=== PATIENT | female | born 1950 | race Caucasian/White ===

== ENCOUNTER 2023-04-07 10:56 | Outpatient (AMB) | payer MEDICARE, MEDICAID, SELFPAY ==
--- NOTE | 2023-04-07 11:10 | A.OFFVIS_ITS ---
Intake Vital Signs 04/07/23 11:17 Height 5 ft 6 in Weight 170 lb 6.677 oz BMI 27.5 BP 140/70 H Blood Pressure Location Rt brachial Position Sitting Pulse 97 Pulse Source Pulse Oximeter Temp 97.4 F Temp Source Skin Pulse Oximetry (%) 98 Oxygen Delivery Method Room Air Intake Visit Reasons: RA Intake Note: New patient presents today for RA consult. Previously seen b Dr Crenshaw and Dr Santoyo. Client Experience Manager Required: No Accompanied by: Daughter Allergies No Known Allergies Allergy (Verified 04/07/23 11:19) Medication List - Last Reconciled 04/07/23 by Luis F Grijalva MD albuterol sulfate 90 mcg/actuation (Ventolin HFA) 1 puff inhalation BID azelastine intranasal brimonidine 0.2% drps ophthalmic (eye) calcium carbonate-vitamin D3 600 mg-20 mcg (800 unit) 1 tab PO DAILY cetirizine 10 mg PO DAILY cholecalciferol (vitamin D3) 50 mcg PO DAILY diltiazem HCl (Cartia XT) 120 mg PO DAILY doxazosin 4 mg PO DAILY enalapril maleate 30 mg PO DAILY etanercept (Enbrel SureClick) mg subcut fluticasone propionate 220 mcg/actuation (Flovent HFA) 2 puffs inhalation BID ketorolac 0.5% 0 drps ophthalmic (eye) montelukast 10 mg PO QPM simvastatin 20 mg PO BEDTIME HPI HPI Comments History of Present Illness Details This is a 72-year-old female with seropositive RA who presents as a new patient. Her previous frame cleaner left the practice. Per patient she was diagnosed at age 28 in [place]. She has been on different medicines for rheumatoid arthritis (please see assessment) she has been on Enbrel the longest. She is currently on Enbrel weekly. She states that she is doing fairly well overall. She gets intermittent pain and swelling of different joints including her feet, elbows, wrists, fingers. Recently her right middle finger was swollen and it is improving on its own. She does complain of generalized body pain including her back, shoulders. She states that she has some bilateral shoulder pain and stiffness. She received a steroid injection a few years ago in the right shoulder, which lasted a long time. She states that she gets intermittent shortness of breath related to her history of asthma. She is unaware of any family history of an autoimmune rheumatic disease. Denies any history of smoking. Per chart review: Patient with CCP positive RA? Diagnosed since about 2001. Has been followed by Dr. Crenshaw since 2011 when she moved from [place] She was on hydroxychloroquine and was on this medication steadily until 2018.? Methotrexate was discussed initially but patient was worried about respiratory side effects as she has history of asthma Roughly in 2004 she was placed on Enbrel, this worked very well controlling her symptoms.? Then in 2015, her insurance force her to change to Humira.? This did not work well.? Since 2017, back on Enbrel, generally taking it every 10 days, but lately every 14 days. [facility] Medical History Abnormal findings on diagnostic imaging of breast Rheumatoid arthritis Asthma Hypertension Nuclear sclerotic cataract Carpal tunnel syndrome Surgical History H/O blepharoplasty Family History Mother Osteoarthritis Social History Alcohol intake: current Alcohol intake frequency: holidays/special occasions only Alcohol type: beer Patient Tobacco Use Status: Never used Tobacco e-Cigarette/Vaping Use: Never Used Current occupational status: retired Female Reproductive History Menstrual Total pregnancies: 1 Review of Systems Const Reports fatigue and Reports weakness Eyes Reports dry eyes, Reports itchy eyes and Reports eye pain ENT Reports dizziness and Reports dry mouth Card Reports irregular heart rhythm and Reports dyspnea Resp Reports cough, Reports dyspnea and Reports wheezing GI Reports nausea Musc Reports arthralgias and Reports stiffness Skin/Breast Reports rash Neuro Reports dizziness and Reports weakness Endo Reports fatigue Aller/Immun Reports itchy eyes and Reports wheezing Physical Exam Vital Signs: Last Vital Signs Temp 97.4 F 04/07/23 11:17 Pulse 97 04/07/23 11:17 BP 140/70 H 04/07/23 11:17 Pulse Ox 98 04/07/23 11:17 Oxygen Delivery Method Room Air 04/07/23 11:17 BMI result Body Mass Index 27.5 Const General: cooperative, healthy appearing and comfortable Nutritional Appearance: overweight Orientation/consciousness: patient oriented x3 Limitations: no limitations HEENT Head: Yes normocephalic and Yes atraumatic Mouth: moist mucous membranes Resp Effort & Inspection: normal respiratory effort and able to speak in complete sentences Auscultation: clear to auscultation bilaterally GI Inspection: No distended Palpation (GI): Soft to palpation and nontender Skin General skin exam: no rashes or lesions noted Neuro General: patient oriented x3 Extrem Other: Minimal swelling of right middle finger Few tender MCPs, PIP is in the DIPs bilaterally without swelling Normal range of motion of wrists, elbows without pain Bilateral reduced shoulder abduction and pain with full abduction Negative rotator cuff provocative maneuvers bilaterally Negative speed's test bilaterally Results Reviewed Results Reviewed: Labs in 02/2022? CRP normal? CMP unremarkable? ESR 24? CBC unremarkable Labs 03/2020? Hepatitis C antibody negative Assessment & Plan Assessment & Plan (1) Rheumatoid arthritis: Comment: +CCP per [place] [address] crenshaw dx 2001 HCQ until 2018 Enbrel [id number] effective DC due to insurnace requirement to Humira Humira DC 2017 ineffective Back on Enbrel 2016 effective Code(s): M06.9 - Rheumatoid arthritis, unspecified Qualifiers: Rheumatoid arthritis location: multiple sites Rheumatoid factor presence: unspecified presence Qualified Code(s): M06.9 - Rheumatoid arthritis, unspecified Plan: This is a 72-year-old female with seropositive RA who presents as a new patient. Her previous frame cleaner left the practice. Patient is doing well overall on Enbrel 50 mg weekly. Continue Enbrel 50 mg weekly Check labs before next visit in 3 months (2) Generalized osteoarthritis: Code(s): M15.9 - Polyosteoarthritis, unspecified Plan: Patient was asking which medications to use for her generalized arthritis. I suggested using Tylenol. NSAIDs such as Advil or Aleve can be used sparingly when needed Plan I spent 45 minutes reviewing patient's chart, evaluating patient, ordering diagnostic workup, counseling patient and documenting in the chart Orders: Orders Complete Blood Count Auto Diff 3 Months M06.9 - Rheumatoid arthritis, unspecified C Reactive Protein 3 Months M06.9 - Rheumatoid arthritis, unspecified T Spot TB 3 Months Z11.7 - Encounter for testing for latent tuberculosis infection Comprehensive Met. Panel 3 Months M06.9 - Rheumatoid arthritis, unspecified Erythrocyte Sedimentation Rate 3 Months M06.9 - Rheumatoid arthritis, unspecified Hepatitis A,B,C Profile 3 Months Z11.59 - Encounter for screening for other viral diseases Immunofixation Pnl, Serum 3 Months M06.9 - Rheumatoid arthritis, unspecified Protein Electrophoresis, Serum 3 Months M06.9 - Rheumatoid arthritis, unspecified Medications: Changed From etanercept (Enbrel SureClick) subcut To Enbrel SureClick (etanercept) 50 mg subcut QWEEK 4 mL 2RF NS Coding Level of Care Code New Pt Level 4 (81559) Diagnoses Rheumatoid arthritis involving multiple sites, unspecified whether rheumatoid factor present M06.9 Rheumatoid arthritis location: multiple sites Rheumatoid factor presence: unspecified presence Generalized osteoarthritis M15.9
[2023-04-07 11:17] VITALS: BP 140/70; PULSE 97; TEMP 36.3; O2SAT 98; BMI 27.5
== END 2023-04-07 11:48 | disposition home or self-care (01) ==
PROVIDERS: PCP Family Medicine; Visit Provider Student in an Organized Health Care Education/Training Program
DX: M06.9 Rheumatoid arthritis, unspecified (principal); M15.9 Polyosteoarthritis, unspecified
CPT/HCPCS: 99204

== ENCOUNTER → 2023-04-07 10:56 | Outpatient (BNVA) | payer MEDICARE, MEDICAID, SELFPAY | PROVIDERS: PCP Family Medicine; Visit Provider Student in an Organized Health Care Education/Training Program | DX: M06.9 Rheumatoid arthritis, unspecified (principal); M15.9 Polyosteoarthritis, unspecified | CPT/HCPCS: 99202 ==

== ENCOUNTER 2023-07-18 11:21 | Outpatient (REF) | payer MEDICARE, MEDICAID, SELFPAY | END 2023-07-18 11:22 | disposition home or self-care (01) | LOC: HO.LAB 11:21 | PROVIDERS: Visit Provider Student in an Organized Health Care Education/Training Program | DX: Z13.89 Encounter for screening for other disorder (principal) ==

== ENCOUNTER 2023-07-24 13:32 | Outpatient (AMB) | payer MEDICARE, MEDICAID, SELFPAY ==
--- NOTE | 2023-07-24 13:52 | A.OFFVIS_ITS ---
Intake Vital Signs 07/24/23 13:55 Height 5 ft 6 in Weight 171 lb 15.369 oz BMI 27.8 BP 142/60 H Blood Pressure Location Rt brachial Position Sitting Pulse 97 Pulse Source Pulse Oximeter Pulse Oximetry (%) 94 Oxygen Delivery Method Room Air Intake Visit Reasons: RA/CONFIRMED Intake Note: Patient last seen 04/07/23 presents today for follow up and test results. Report back pain; very stiff. Went to [facility] in [place] xray was done, was told she had really bad arthritis. Given short supply of baclofen and prednisone, which gave minimal relief. Would like medication she can take for back pain along with Enbrel Credit Risk Review Officer Required: Yes Credit Risk Review Officer Name: Rossy Posey- form signed Information Interpreted: non-clinical & clinical Accompanied by: Daughter Allergies No Known Allergies Allergy (Verified 07/24/23 13:57) Medication List - Last Reconciled 07/24/23 by Luis F Grijalva MD albuterol sulfate 90 mcg/actuation (Ventolin HFA) 1 puff inhalation BID azelastine intranasal brimonidine 0.2% drps ophthalmic (eye) calcium carbonate-vitamin D3 600 mg-20 mcg (800 unit) 1 tab PO DAILY cetirizine 10 mg PO DAILY cholecalciferol (vitamin D3) 50 mcg PO DAILY diltiazem HCl (Cartia XT) 120 mg PO DAILY doxazosin 4 mg PO DAILY enalapril maleate 30 mg PO DAILY Enbrel SureClick (etanercept) 50 mg subcut QWEEK NS fluticasone propionate 220 mcg/actuation (Flovent HFA) 2 puffs inhalation BID ketorolac 0.5% 0 drps ophthalmic (eye) montelukast 10 mg PO QPM simvastatin 20 mg PO BEDTIME HPI HPI Comments History of Present Illness Details 72-year-old female with seropositive RA returns for follow-up. She states that recently she went to the hospital at [place] due to left-sided lower back/upper hip pain. Stated that she had x-rays done and was told that she had significant arthritis. She was discharged on baclofen and prednisone with little relief. Her daughter gave her naproxen which helped. She stated that the day before going to the emergency room she was working in the garden, leaning forward. She is doing fairly well with regards to her RA. She gets intermittent swelling of her fingers but nothing severe. Today she is having some left shoulder pain when raising her arm above her head. Initial history: This is a 72-year-old female with seropositive RA who presents as a new patient. Her previous orthotics prosthetics assistant left the practice. Per patient she was diagnosed at age 28 in [place]. She has been on different medicines for rheumatoid arthritis (please see assessment) she has been on Enbrel the longest. She is currently on Enbrel weekly. She states that she is doing fairly well overall. She gets intermittent pain and swelling of different joints including her feet, elbows, wrists, fingers. Recently her right middle finger was swollen and it is improving on its own. She does complain of generalized body pain including her back, shoulders. She states that she has some bilateral shoulder pain and stiffness. She received a steroid injection a few years ago in the right shoulder, which lasted a long time. She states that she gets intermittent shortness of breath related to her history of asthma. She is unaware of any family history of an autoimmune rheumatic disease. Denies any history of smoking. Per chart review: Patient with CCP positive RA? Diagnosed since about 2001. Has been followed by Dr. Crenshaw since 2011 when she moved from [place] She was on hydroxychloroquine and was on this medication steadily until 2018.? Methotrexate was discussed initially but patient was worried about respiratory side effects as she has history of asthma Roughly in 2004 she was placed on Enbrel, this worked very well controlling her symptoms.? Then in 2015, her insurance force her to change to Humira.? This did not work well.? Since 2017, back on Enbrel, generally taking it every 10 days, but lately every 14 days. [facility] Medical History Abnormal findings on diagnostic imaging of breast Rheumatoid arthritis Asthma Hypertension Nuclear sclerotic cataract Carpal tunnel syndrome Surgical History H/O blepharoplasty Family History Mother Osteoarthritis Social History Alcohol intake: current Alcohol intake frequency: holidays/special occasions only Alcohol type: beer Patient Tobacco Use Status: Never used Tobacco e-Cigarette/Vaping Use: Never Used Current occupational status: retired Review of Systems [facility] Reports back pain, Reports arthralgias, Reports joint swelling, Reports limited range of motion and Reports stiffness Physical Exam Vital Signs: Last Vital Signs Pulse 97 07/24/23 13:55 BP 142/60 H 07/24/23 13:55 Pulse Ox 94 07/24/23 13:55 Oxygen Delivery Method Room Air 07/24/23 13:55 BMI result Body Mass Index 27.8 Const General: cooperative, healthy appearing and comfortable Nutritional Appearance: overweight Orientation/consciousness: patient oriented x3 Limitations: no limitations HEENT Head: Yes normocephalic and Yes atraumatic Mouth: moist mucous membranes Resp Effort & Inspection: normal respiratory effort and able to speak in complete sentences Auscultation: wheezes Skin General skin exam: no rashes or lesions noted Neuro General: patient oriented x3 Extrem Other: No swollen or tender joints today Normal range of motion of wrists, elbows without pain Left shoulder pain with full abduction Negative rotator cuff provocative maneuvers bilaterally Negative straight leg raise test bilaterally No knee swelling, warmth bilaterally Negative speed's test bilaterally Assessment & Plan Assessment & Plan (1) Rheumatoid arthritis: Comment: +CCP per [place] [address] crenshaw dx 2002 HCQ until 2018 Enbrel [id number] effective DC due to insurnace requirement to Humira Humira DC 2017 ineffective Back on Enbrel 2017 effective Code(s): M06.9 - Rheumatoid arthritis, unspecified Qualifiers: Rheumatoid arthritis location: multiple sites Rheumatoid factor presence: unspecified presence Qualified Code(s): M06.9 - Rheumatoid arthritis, unspecified Plan: This is a 72-year-old female with seropositive RA who presents as a new patient. Her previous orthotics prosthetics assistant left the practice. Patient is doing well overall on Enbrel 50 mg weekly. Continue Enbrel 50 mg weekly Infectious screening hepatitis panel and T spot negative 05/2023 labs before next visit in 6 months (2) Generalized osteoarthritis: Code(s): M15.9 - Polyosteoarthritis, unspecified Plan: Patient was asking which medications to use for her generalized arthritis. I suggested using Tylenol. NSAIDs such as Advil or Aleve can be used sparingly when needed We discussed potential steroid injections especially of that left shoulder. Patient was not interested today (3) Lumbar paraspinal muscle spasm: Code(s): M62.830 - Muscle spasm of back Plan: Prescribed Flexeril to use as needed. Advised patient that it can make her dizzy/lightheaded. Advised patient not to drive or operate heavy machinery if feeling as such. Consider OTC Salonpas patch. Advised patient that likey needs to be evaluated by Pain Management. She was not interested at that point Plan I spent 25 minutes reviewing patient's chart, evaluating patient, ordering diagnostic workup, counseling patient and documenting in the chart Orders: Orders Complete Blood Count Auto Diff 6 Months M06.9 - Rheumatoid arthritis, unspecified Comprehensive Met. Panel 6 Months M06.9 - Rheumatoid arthritis, unspecified C Reactive Protein 6 Months M06.9 - Rheumatoid arthritis, unspecified Erythrocyte Sedimentation Rate 6 Months M06.9 - Rheumatoid arthritis, unspecified Medications: New cyclobenzaprine 5 mg PO BEDTIME PRN 20 tabs 1RF muscle spasm Refilled Enbrel SureClick (etanercept) 50 mg subcut QWEEK 4 mL 5RF NS Coding Level of Care Code Est Pt Level 4 (98667) Diagnoses Rheumatoid arthritis involving multiple sites, unspecified whether rheumatoid factor present M06.9 Rheumatoid arthritis location: multiple sites Rheumatoid factor presence: unspecified presence Generalized osteoarthritis M15.9 Lumbar paraspinal muscle spasm M62.830
[2023-07-24 13:55] VITALS: BP 142/60; PULSE 97; O2SAT 94; BMI 27.8
== END 2023-07-24 14:31 | disposition home or self-care (01) ==
PROVIDERS: PCP Family Medicine; Visit Provider Student in an Organized Health Care Education/Training Program
DX: M06.9 Rheumatoid arthritis, unspecified (principal); M15.9 Polyosteoarthritis, unspecified; M62.830 Muscle spasm of back
CPT/HCPCS: 99214

== ENCOUNTER → 2023-07-24 13:32 | Outpatient (BNVA) | payer MEDICARE, MEDICAID, SELFPAY | PROVIDERS: PCP Family Medicine; Visit Provider Student in an Organized Health Care Education/Training Program | DX: M06.9 Rheumatoid arthritis, unspecified (principal); M15.9 Polyosteoarthritis, unspecified; M62.830 Muscle spasm of back | CPT/HCPCS: 99212 ==

== ENCOUNTER 2024-03-18 10:13 | Outpatient (AMB) | payer MEDICARE, MEDICAID, SELFPAY ==
--- NOTE | 2024-03-18 10:24 | MHC.OFFVIS ---
Vital Signs 03/18/24 10:31 Height 5 ft 6 in Weight 175 lb 4.28 oz BMI 28.3 BP 142/78 H Blood Pressure Location Rt brachial Position Sitting Pulse 91 Pulse Source Pulse Oximeter Pulse Oximetry (%) 97 Oxygen Delivery Method Room Air Intake Visit Reasons: RA/CM APT Intake Note: Patient presents for RA. Outsole Splicer Required: Yes Outsole Splicer Language: Nurse Practitioner Physicians Assistant Services: Outsole Splicer Offered & Declined Outsole Splicer Name: Eliana Lino Information Interpreted: non-clinical & clinical Keno Clerk: Keno Clerk Present Accompanied by: Grand Child Allergies No Known Allergies Allergy (Verified 03/18/24 10:28) Medication List - Last Reconciled 03/18/24 by Luis F Grijalva MD albuterol sulfate 90 mcg/actuation (Ventolin HFA) 1 puff inhalation BID azelastine intranasal calcium carbonate-vitamin D3 600 mg-20 mcg (800 unit) 1 tab PO DAILY cetirizine 10 mg PO DAILY cholecalciferol (vitamin D3) 50 mcg PO DAILY diltiazem HCl CD (Cartia XT) 120 mg PO DAILY doxazosin 4 mg PO DAILY enalapril maleate 30 mg PO DAILY Enbrel SureClick (etanercept) 50 mg subcut QWEEK NS fluticasone propionate 220 mcg/actuation (Flovent HFA) 2 puffs inhalation BID montelukast 10 mg PO QPM simvastatin 20 mg PO BEDTIME HPI Comments Details: 73-year-old female with seropositive RA returns for follow-up. She remains on Enbrel 50 mg subcutaneously once weekly. She states that she feels about the same. She continues to have diffuse pain especially in her back, her knees. She mentions intermittent swelling of her hands and wrists. Initial history: This is a 72-year-old female with seropositive RA who presents as a new patient. Her previous switch box installer left the practice. Per patient she was diagnosed at age 28 in [place]. She has been on different medicines for rheumatoid arthritis (please see assessment) she has been on Enbrel the longest. She is currently on Enbrel weekly. She states that she is doing fairly well overall. She gets intermittent pain and swelling of different joints including her feet, elbows, wrists, fingers. Recently her right middle finger was swollen and it is improving on its own. She does complain of generalized body pain including her back, shoulders. She states that she has some bilateral shoulder pain and stiffness. She received a steroid injection a few years ago in the right shoulder, which lasted a long time. She states that she gets intermittent shortness of breath related to her history of asthma. She is unaware of any family history of an autoimmune rheumatic disease. Denies any history of smoking. Per chart review: Patient with CCP positive RA? Diagnosed since about 2001. Has been followed by Dr. Crenshaw since 2011 when she moved from [place] She was on hydroxychloroquine and was on this medication steadily until 2018.? Methotrexate was discussed initially but patient was worried about respiratory side effects as she has history of asthma Roughly in 2004 she was placed on Enbrel, this worked very well controlling her symptoms.? Then in 2015, her insurance force her to change to Humira.? This did not work well.? Since 2017, back on Enbrel, generally taking it every 10 days, but lately every 14 days. [facility] Medical History Abnormal findings on diagnostic imaging of breast Rheumatoid arthritis Asthma Hypertension Nuclear sclerotic cataract Carpal tunnel syndrome Surgical History H/O blepharoplasty Family History Mother Osteoarthritis Social History Alcohol intake: current Alcohol intake frequency: holidays/special occasions only Alcohol type: beer Patient Tobacco Use Status: Never used Tobacco e-Cigarette/Vaping Use: Never Used Current occupational status: retired Female Reproductive History Menstrual Total pregnancies: 1 Review of Systems [facility] Reports back pain, Reports arthralgias, Reports joint swelling, Reports limited range of motion and Reports stiffness Physical Exam Vital Signs: Last Vital Signs Pulse 91 03/18/24 10:31 BP 142/78 H 03/18/24 10:31 Pulse Ox 97 03/18/24 10:31 Oxygen Delivery Method Room Air 03/18/24 10:31 BMI result Body Mass Index 28.3 Const General: cooperative, healthy appearing and comfortable Nutritional Appearance: overweight Orientation/consciousness: patient oriented x3 Limitations: no limitations HEENT Head: Yes normocephalic and Yes atraumatic Mouth: moist mucous membranes Resp Effort & Inspection: normal respiratory effort and able to speak in complete sentences Skin General skin exam: no rashes or lesions noted Neuro General: patient oriented x3 Extrem Other: No swollen or tender joints today Normal range of motion of wrists, elbows without pain Negative rotator cuff provocative maneuvers bilaterally Negative straight leg raise test bilaterally No knee swelling, warmth bilaterally Negative speed's test bilaterally Assessment & Plan Assessment & Plan (1) Rheumatoid arthritis: Comment: +CCP [place] [address] crenshaw dx 2001 HCQ until 2018 Enbrel [id number] effective DC due to insurnace requirement to Humira Humira DC 2017 ineffective Back on Enbrel 2017 effective Code(s): M06.9 - Rheumatoid arthritis, unspecified Category: Medical Qualifiers: Rheumatoid arthritis location: multiple sites Rheumatoid factor presence: unspecified presence Qualified Code(s): M06.9 - Rheumatoid arthritis, unspecified Plan: This is a 72-year-old female with seropositive RA who for follow-up. Patient is doing well overall on Enbrel 50 mg weekly. Continue Enbrel 50 mg weekly Infectious screening hepatitis panel and T spot negative 05/2023 labs before next visit in 6 months (2) Generalized osteoarthritis: Code(s): M15.9 - Polyosteoarthritis, unspecified Category: Medical Plan: Patient was asking which medications to use for her generalized arthritis. I suggested using Tylenol. NSAIDs such as Advil or Aleve can be used sparingly when needed We discussed referral to PT. Patient not interested (3) High risk medication use: Code(s): Z79.899 - Other residential (current) drug therapy Category: Medical Plan: Side effects of Enbrel were discussed with the patient in detail including increased risk of infection, demyelinating disease, reactivation of latent TB, possible increased risk of solid and skin tumors. Patient fully aware. Advised patient to seek medical care [facility] if patient has an infection and advised patient to stop the medication until the infection is resolved. Plan I spent 25 minutes reviewing patient's chart, evaluating patient, ordering diagnostic workup, counseling patient and documenting in the chart Orders: Orders Complete Blood Count Auto Diff 6 Months M06.9 - Rheumatoid arthritis, unspecified Comprehensive Met. Panel 6 Months M06.9 - Rheumatoid arthritis, unspecified C Reactive Protein 6 Months M06.9 - Rheumatoid arthritis, unspecified Erythrocyte Sedimentation Rate 6 Months M06.9 - Rheumatoid arthritis, unspecified T Spot TB 6 Months Z11.7 - Encounter for testing for latent tuberculosis infection Hepatitis A,B,C Profile 6 Months Z11.59 - Encounter for screening for other viral diseases Coding Level of Care Code Est Pt Level 4 (38605) Complex EM visit Add On G2211 Diagnoses Rheumatoid arthritis involving multiple sites, unspecified whether rheumatoid factor present M06.9 Rheumatoid arthritis location: multiple sites Rheumatoid factor presence: unspecified presence Generalized osteoarthritis M15.9 High risk medication use Z79.89
[2024-03-18 10:31] VITALS: BP 142/78; PULSE 91; O2SAT 97; BMI 28.3
== END 2024-03-18 10:53 | disposition home or self-care (01) ==
PROVIDERS: PCP Family Medicine; Visit Provider Student in an Organized Health Care Education/Training Program
DX: M06.9 Rheumatoid arthritis, unspecified (principal); M15.9 Polyosteoarthritis, unspecified; Z79.899 Other long term (current) drug therapy
CPT/HCPCS: 99214; G2211

== ENCOUNTER → 2024-03-18 10:13 | Outpatient (BNVA) | payer MEDICARE, MEDICAID, SELFPAY | PROVIDERS: PCP Family Medicine; Visit Provider Student in an Organized Health Care Education/Training Program | DX: M06.9 Rheumatoid arthritis, unspecified (principal); M15.9 Polyosteoarthritis, unspecified; Z79.899 Other long term (current) drug therapy | CPT/HCPCS: 99212 ==

== ENCOUNTER 2024-09-17 09:52 | Outpatient (AMB) | payer MEDICARE, MEDICAID, SELFPAY ==
--- NOTE | 2024-09-17 09:54 | MHC.OFFVIS ---
Vital Signs 09/17/24 10:09 Height 5 ft 6 in Weight 168 lb 6.931 oz BMI 27.2 BP 154/100 H Blood Pressure Location Lt brachial Position Sitting Pulse 87 Pulse Source Pulse Oximeter Pulse Oximetry (%) 97 Oxygen Delivery Method Room Air Intake Visit Reasons: RA Intake Note: Patient presents for RA follow up. Marble Machine Operator Required: Yes Marble Machine Operator Language: Shutdown Planner Services: Marble Machine Operator Offered & Declined Marble Machine Operator Name: Rossy Posey Information Interpreted: non-clinical & clinical Hospice Superintendent: Hospice Superintendent Present Accompanied by: Daughter Allergies No Known Allergies Allergy (Verified 09/17/24 10:05) Medication List - Last Reconciled 09/17/24 by Shante Arita MD albuterol sulfate 90 mcg/actuation (Ventolin HFA) 1 puff inhalation BID azelastine intranasal cholecalciferol (vitamin D3) 50 mcg PO DAILY diltiazem HCl CD (Cartia XT) 120 mg PO DAILY doxazosin 4 mg PO DAILY enalapril maleate 30 mg PO DAILY Enbrel SureClick (etanercept) 50 mg subcut QWEEK NS fluticasone propionate 220 mcg/actuation (Flovent HFA) 2 puffs inhalation BID montelukast 10 mg PO QPM simvastatin 20 mg PO BEDTIME HPI Comments Details: Patient is a 73-year-old female with asthma/allergies, hypertension, hyperlipidemia and seropositive rheumatoid arthritis here today for follow up Interval History: Patient last seen 03/18/[address] Grijalva. At that time she was following up for seropositive rheumatoid arthritis on Enbrel 50 mg weekly continued to complain of diffuse pain especially involving her back and knees with intermittent swelling of her hands and wrists. Her complaints were trimmed her polyarticular arthritis Tylenol with sparing use of NSAIDs. Today, She reports continued whole body pain Particularly bilateral shoulder pain L>R Difficult to lay on left side at night Also complaining of swelling to the tips of the fingers - no specific time of day - no relation to enbrel injection No prolonged AM stiffness Rheumatologic History: +CCP per pt dx [place] [address] crenshaw dx 2001 HCQ until 2018 Enbrel [id number] effective DC due to insurnace requirement to Humira Humira DC 2017 ineffective Back on Enbrel 2017 effective Initial history: This is a 72-year-old female with seropositive RA who presents as a new patient. Her previous infrastructure architect left the practice. Per patient she was diagnosed at age 28 in [place]. She has been on different medicines for rheumatoid arthritis (please see assessment) she has been on Enbrel the longest. She is currently on Enbrel weekly. She states that she is doing fairly well overall. She gets intermittent pain and swelling of different joints including her feet, elbows, wrists, fingers. Recently her right middle finger was swollen and it is improving on its own. She does complain of generalized body pain including her back, shoulders. She states that she has some bilateral shoulder pain and stiffness. She received a steroid injection a few years ago in the right shoulder, which lasted a long time. She states that she gets intermittent shortness of breath related to her history of asthma. She is unaware of any family history of an autoimmune rheumatic disease. Denies any history of smoking. Per chart review: Patient with CCP positive RA? Diagnosed since about 2001. Has been followed by Dr. Crenshaw since 2011 when she moved from [place] She was on hydroxychloroquine and was on this medication steadily until 2018.? Methotrexate was discussed initially but patient was worried about respiratory side effects as she has history of asthma Roughly in 2004 she was placed on Enbrel, this worked very well controlling her symptoms.? Then in 2015, her insurance force her to change to Humira.? This did not work well.? Since 2017, back on Enbrel, generally taking it every 10 days, but lately every 14 days. Current Rheumatology Medication(s): Enbrel 50mg SC weekly [facility] Medical History (Updated 03/18/24 @ 10:55 by Luis F Grijalva MD) Abnormal findings on diagnostic imaging of breast Rheumatoid arthritis Asthma Hypertension Nuclear sclerotic cataract Carpal tunnel syndrome Surgical History (Updated 09/17/24 @ 10:09 by VARUN Boyd) History of hip surgery H/O blepharoplasty Family History Mother Osteoarthritis Social History Alcohol intake: current Alcohol intake frequency: holidays/special occasions only Alcohol type: beer Patient Tobacco Use Status: Never used Tobacco e-Cigarette/Vaping Use: Never Used Current occupational status: retired Review of Systems Const Details: Review of Systems Constitutional: Denies fever, chills, weight loss ENT: Denies vision changes, eye pain or eye redness, dental caries, dry mouth GI: Denies nausea, vomiting, diarrhea, abdominal pain, change in BM Pulm: Denies SOB, PARRA, hemoptysis, wheezing Cards: Denies chest pain, palpitations Skin: Denies Raynaud's, rash, nail changes, photosensitivity, FOAM MOLDER: Denies headaches, weakness, paresthesias, recurrent falls MSK: as per HPI All other systems reviewed and are unremarkable except noted above Physical Exam Vital Signs: Last Vital Signs Pulse 87 09/17/24 10:09 BP 154/100 H 09/17/24 10:09 Pulse Ox 97 09/17/24 10:09 Oxygen Delivery Method Room Air 09/17/24 10:09 BMI result Body Mass Index 27.2 Vital signs reviewed Physical Examination CONSTITUITIONAL Patient alert and cooperative. Well appearing and in no apparent painful distress HEENT Conjunctiva and sclera clear. ?Pupils equal round and reactive to light. ?No lymphadenopathy. ? CHEST/RESPIRATORY SYSTEM Normal respiratory effort and able to speak in complete sentences. ?Clear to auscultation bilaterally. ?No crackles, rales, rhonchi, wheezes heard. CARDIAC SYSTEM Regular rate and rhythm. ?S1 and S2 heard no murmurs. ?Radial pulses intact bilaterally MSK Hands: ?Able to make a fist. No synovitis noted to the MCPs, PIPs or DIPs. ?No tenderness to palpation of these joints. Herbeden's nodes Wrists: ?Full range of motion at the wrists without pain. ?No tenderness to palpation or synovitis noted to the wrists. Elbows: Full range of motion without pain. No tenderness, weakness, swelling, increased warmth or erythema. Shoulders: Full range of active range of motion without pain. No tenderness, weakness, swelling, increased warmth or erythema. TTP of bilateral subacromial bursa L>R Knees: ?Full range of motion. ?No tenderness, swelling, increased warmth or erythema.?Crepitations Ankles: Full range of motion. ?No tenderness, swelling, increased warmth or erythema.? Feet: ?Negative squeeze test. ?No tenderness to palpation or swelling of the MTPs. Tender points:?No tenderness to palpation of the bilateral trapezius, supraspinatus, greater trochanters, anterior costochondral junctions, bilateral gluteal areas, bilateral suboccipital muscle insertions SKIN Skin intact without rashes. Office Procedures AMB Joint Injection/Aspiration Joint Injection/Aspiration Details: Procedure was explained to the patient and consent was obtained. ? The area of interest was identified and confirmed with patient. ?This was subsequently cleaned with chlorhexidine x3. ? The area was then anesthetized using ethyl chloride spray. 40 mg Kenalog with 1 cc 1% lidocaine was injected without issue. ?Minimal to no bleeding. ?Patient tolerated procedure. Primary Site: right shoulder Prep: site was prepped using aseptic technique and ethochloride spray was applied Injected: 40 mg of, Kenalog, with 1 mL of, 1% plain lidocaine and in the subcromial space Coding 42918 - Large joint Procedure code (CPT) selection complete AMB Joint Injection/Aspiration Joint Injection/Aspiration Details: Procedure was explained to the patient and consent was obtained. ? The area of interest was identified and confirmed with patient. ?This was subsequently cleaned with chlorhexidine x3. ? The area was then anesthetized using ethyl chloride spray. 40 mg Kenalog with 1 cc 1% lidocaine was injected without issue. ?Minimal to no bleeding. ?Patient tolerated procedure. Primary Site: left shoulder Prep: site was prepped using aseptic technique and ethochloride spray was applied Injected: 40 mg of, Kenalog, with 1 mL of, 1% plain lidocaine and in the subcromial space Procedure: The patient tolerated the procedure well Coding 62305 - Large joint Procedure code (CPT) selection complete Office Meds lidocaine (PF) 10 mg/mL (1 %) injection solution Performing Provider: Shante Arita MD Performing Location: [facility] [place] Rheumatology Administered by: Shante Arita MD on 09/17/24 11:10 Dose Route Admin Location Dispensed Lot Number Expiration Date [facility] [place] Clinical Resource Nurse 1 mL Infiltration right shoulder 2 mL [id number] 06/26/26 94820-409-21 [facility] Kenalog 40 mg/mL suspension for injection Performing Provider: Shante Arita MD Performing Location: [facility] [place] Rheumatology Administered by: Shante Arita MD on 09/17/24 11:10 Dose Route Admin Location Dispensed Lot Number Expiration Date [facility] [place] Clinical Resource Nurse 40 mg intrabursal right shoulder 1 mL [id number] 10/26/25 [address]-3 [employer] lidocaine (PF) 10 mg/mL (1 %) injection solution Performing Provider: Shante Arita MD Performing Location: [facility] [place] Rheumatology Administered by: Shante Arita MD on 09/17/24 11:10 Dose Route Admin Location Dispensed Lot Number Expiration Date [place] Clinical Resource Nurse 1 mL Infiltration left shoulder 2 mL [id number] 06/26/26 02852-557-31 [facility] Kenalog 40 mg/mL suspension for injection Performing Provider: Shante Arita MD Performing Location: [facility] [place] Rheumatology Administered by: Shante Arita MD on 09/17/24 11:10 Dose Route Admin Location Dispensed Lot Number Expiration Date [facility] [place] Clinical Resource Nurse 40 mg intrabursal left shoulder 1 mL [id number] 10/26/25 [address]-9 [employer] Results Reviewed Results Reviewed: [facility] results from 02/2024 reviewed Assessment & Plan Assessment & Plan (1) Rheumatoid arthritis: Comment: +CCP per pt dx at [address] crenshaw dx 2001 HCQ until 2018 Enbrel [id number] effective DC due to insurnace requirement to Humira Humira DC 2017 ineffective Back on Enbrel 2016 effective Code(s): M06.9 - Rheumatoid arthritis, unspecified Category: Medical Qualifiers: Rheumatoid arthritis location: multiple sites Rheumatoid factor presence: unspecified presence Qualified Code(s): M06.9 - Rheumatoid arthritis, unspecified Plan: #Seropositive RA Patient is a 73-year-old female with seropositive rheumatoid arthritis here today for follow up. Currently in remission on Enbrel monotherapy. 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 Had a long discussion with patient and her aide about the difference between the 2 diseases. Today she was complaining of bilateral shoulder pain exam was consistent with bilateral subacromial bursitis and she received bilateral steroid injections. Recommended Tylenol Arthritis every 8 hours for her generalized osteoarthritis Plan - Tylenol 650mg every 8 hours - s/p bilateral shoulder injections today (3) Encounter for monitoring of etanercept therapy: Code(s): Z51.81 - Encounter for therapeutic drug level monitoring; Z79.620 - meterman (current) use of immunosuppressive biologic Plan: #Long-term Use of TNF Inhibitors: Etanercept Discussed with the patient the benefits and risks of TNF inhibitors for the management of the rheumatic condition Benefits include reduce pain, maintenance of remission and reduction of flares as well as ?progression of the disease Risks include injection sites/infusion reactions, serious infections (such as bacterial infections, opportunistic infections), malignancy, delaminating syndromes, autoimmune phenomena, CHF exacerbations, palmar plantar psoriasis and cytopenias Recommended rotating injection sites, and holding medication during and for up to 1 week after resolution of a febrile illness or open skin wound Plan I spent 33 minutes reviewing the record and labs, taking a history, examining the patient, discussing the treatment plan, ordering diagnostic work up and documenting in the medical record Orders: Orders AMB Joint Injection/Aspiration Today M75.51 - Bursitis of right shoulder, M75.52 - Bursitis of left shoulder AMB Joint Injection/Aspiration Today M75.51 - Bursitis of right shoulder, M75.52 - Bursitis of left shoulder Medications: New lidocaine (PF) 1 mL Infiltration ONCE 2 mL 0RF M75.51 - Bursitis of right shoulder, M75.52 - Bursitis of left shoulder Kenalog (triamcinolone acetonide) 40 mg intrabursal ONCE 1 mL 0RF NS M75.51 - Bursitis of right shoulder, M75.52 - Bursitis of left shoulder lidocaine (PF) 1 mL Infiltration ONCE 2 mL 0RF M75.51 - Bursitis of right shoulder, M75.52 - Bursitis of left shoulder Kenalog (triamcinolone acetonide) 40 mg intrabursal ONCE 1 mL 0RF NS M75.51 - Bursitis of right shoulder, M75.52 - Bursitis of left shoulder acetaminophen ER (Tylenol Arthritis Pain) 650 mg PO Q8H 90 days 270 tabs 1RF M15.9 - Polyosteoarthritis, unspecified Refilled Enbrel SureClick (etanercept) 50 mg subcut QWEEK 4 mL 5RF NS M06.9 - Rheumatoid arthritis, unspecified Coding Level of Care Code Est Pt Level 4 (02307) Complex EM visit Add On G2211 Diagnoses Rheumatoid arthritis involving multiple sites, unspecified whether rheumatoid factor present M06.9 Rheumatoid arthritis location: multiple sites Rheumatoid factor presence: unspecified presence Generalized osteoarthritis M15.9 Encounter for monitoring of etanercept therapy Z51.81; Z79.620 CPT Codes Coding - 51151 Large joint: 81401 - Large joint ([id number]) Coding - 44455 Large joint: 08863 - Large joint ([id number])
--- OUTSIDE RECORDS SUMMARY | 2024-09-17 10:06 | XMS_ITS | Data Portability ---
Author Organization [facility], , 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 [email or web address] Not available 02/28/2020 12:07:55 Plan of Treatment Reminders Order Date Submit Date Provider Last Modified By Organization Details Last Modified Time Details Appointments None recorded. Lab C-reactive protein, quantitati ve, serum or plasma 2021 [facility], [address] [place] [address], [address], 13:53:36 CMP, serum or plasma 2021 022 [facility], [address] [place] [address], 577[address], 2 11:24:53 erythrocyt e sedimentat ion rate by westergren method 2021 [facility], [address] [place] [address], 02001, 10:12:40 CBC 2021 [facility], [address] [place] [address], 29800, 2 08:42:11 C-reactive protein, quantitati ve, serum or plasma 2019 020 [facility], [address] [place] [address], 91785, 0 16:55:32 erythrocyt e sedimentat ion rate by westergren method 2019 020 [facility], [address] [place] [address], 08761, 0 16:30:21 CBC 2019 020 [facility], [address] [place] [address], 29192, 0 14:47:48 C-reactive protein, quantitati ve, serum or plasma 2019 020 [facility], [address] [place] [address], 02815, 0 15:17:39 creatinine , serum or plasma 2019 020 [facility], [address] [place] [address], 22777, 0 15:17:36 erythrocyt e sedimentat ion rate by westergren method 2019 020 [facility], [address] [place] [address], 45454, 0 16:44:02 Referral ENT referral - chronic inflammati on of the sinus and nasal passaage using Afrin, please evaluate 2018 019 [email or web address] Emma Rees MD, [address] [place], [address], 0 09:50:39 Procedures None recorded. Surgeries None recorded. Imaging None recorded. Medication Orders Enbrel SureClick 50 mg/mL (1 mL) subcutaneo us pen injector 2021 022 [email or web address] [facility] #[id number], [address] [place], [place], [id number], 2 14:16:03 Enbrel SureClick 50 mg/mL (1 mL) subcutaneo us pen injector 2019 020 [id number], [address] [place], [place], [id number], 0 10:06:08 fluticason e propionate 50 mcg/actuat ion nasal spray,susp ension 2018 019 [facility] #[id number], [address] [place], [place], [id number], 9 17:43:55 Mucinex 1,200 mg tablet, extended release 2018 019 [id number], [address] [place], [place], [id number], 9 17:43:55 Patient TargetsNo targets recorded. Patient InstructionsNo instructions recorded. Reason for Referral ENT Referral for Chronic sin usitis chronic inflammation of the sinus and nasal passaage using Afrin, please evaluate Referring Physician: Ana Gamble, Family Medicine, Encounter Date: 12/23/2018 Results Created Date Observation Date Name Description Value Unit Range Abnormal Flag Note LastModifiedBy Organization Detail LastModifiedTime 05/31/1905/31/2019 CBC WBC 4.86 K/? ? ?L 3.98-1 0.04 Not Available [address], [address], 05/31/2019 10:50:27 05/31/19 20 05/31/2019 CBC RBC 4.17 M/? ? ?L 3.93-5 .22 Not Available [address], [address]407, 05/31/2019 10:50:27 05/31/1905/31/2019 CBC HGB 13.5 g/dL 11.2-1 5.7 Not Available [address], 30985, 05/31/2019 10:50:27 05/31/19 20 05/31/2019 CBC HCT 40.9 % 34.1-4 4.9 Not Available [address], 46133, 05/31/2019 10:50:27 05/31/19 20 05/31/2019 CBC MCV 98.1 fL 79.4-9 4.8 high Not Available [address], 73770, 05/31/2019 10:50:27 05/31/19 20 05/31/2019 CBC MCH 32.4 pg 25.6-3 2.2 high Not Available [address], 67971, 05/31/2019 10:50:27 05/31/19 20 05/31/2019 CBC MCHC 33.0 g/dL 32.2-3 5.5 Not Available [address], 65353, 05/31/2019 10:50:27 05/31/19 20 05/31/2019 CBC plt 197 K/? ? ?L 182-36 9 Not Available [address], 01368, 05/31/2019 10:50:27 05/31/19 20 05/31/2019 CBC MPV 12.0 fL 9.4-12 .3 Not Available [address], 26748, 05/31/2019 10:50:27 05/31/19 20 05/31/2019 CBC neut% 51.9 % 34.0-7 1.1 Not Available [address], 10506, 05/31/2019 10:50:27 05/31/19 20 05/31/2019 CBC neut# 2.52 1.56-6 .13 Not Available [address], 91356, 05/31/2019 10:50:27 05/31/19 20 05/31/2019 CBC lymph % 29.0 % 19.3-5 1.7 Not Available [address], 94329, 05/31/2019 10:50:27 05/31/19 20 05/31/2019 CBC lymph # 1.41 K/? ? ?L 1.18-3 .74 Not Available [address], 03979, 05/31/2019 10:50:27 05/31/19 20 05/31/2019 CBC mono% 11.9 % 4.7-12 .5 Not Available [address], 16982, 05/31/2019 10:50:27 05/31/19 20 05/31/2019 CBC mono# 0.58 0.24-0 .56 high Not Available [address], 54391, 05/31/2019 10:50:27 05/31/19 20 05/31/2019 CBC eo% 6.0 % 0.7-5. 8 high Not Available [address], 33224, 05/31/2019 10:50:27 05/31/19 20 05/31/2019 CBC eo# 0.29 0.04-0 .36 Not Available [address], 21746, 05/31/2019 10:50:27 05/31/19 20 05/31/2019 CBC baso% 1.2 % 0.1-1. 2 Not Available [address], 06288, 05/31/2019 10:50:27 05/31/19 20 05/31/2019 CBC baso# 0.06 0.00-0 .08 Not Available [address], 14519, 05/31/2019 10:50:27 05/31/19 20 05/31/2019 CBC RDW-CV 13.3 % 11.7-1 4.4 Not Available [address], 12065, 05/31/2019 10:50:27 05/31/19 20 05/31/2019 CBC Ig% 0.000 % 0.000- 1.500 Ig % >0.5 Indic ates possi ble Left Shift Not Available [address], 79418, 05/31/2019 10:50:27 05/31/19 20 05/31/2019 CBC Ig# 0.000 0.000- 0.093 Not Available [address], 46822, 05/31/2019 10:50:27 05/31/19 20 05/31/2019 CBC NRBC% 0.0 % 0.0-0. 2 Not Available [address], 61155, 05/31/2019 10:50:27 05/31/19 20 05/31/2019 CBC NRBC# 0.000 0.000- 0.012 Not Available [address], 75889, 05/31/2019 10:50:27 05/31/19 20 05/31/2019 HbA1c (hemo globi n A1c), blood hemoglobin A1C 6.1 % 4.8-6. 0 high Goal: <7% in Patie nts with Diabe tracey Not Available [address], 55252, 05/31/2019 11:16:37 05/31/1905/31/2019 HbA1c (hemo globi n A1c), blood estimated average glucose 128.4 mg/dL Not Available [address], 45432, 05/31/2019 11:16:37 05/31/19 20 05/31/2019 micro album in, urine microalbumin 13.0 mg/L 1.3-20 .0 Not Available [address], 96229, 05/31/2019 13:00:31 05/31/19 20 05/31/2019 micro album in, urine creatinine urine 94.6 mg/dL 30.0-1 25.0 Not Available [address], 91283, 05/31/2019 13:00:31 05/31/19 20 05/31/2019 micro album in, urine microalb/cre at ratio 13.7 mg/g_ creat 0.0-29 .0 Not Available [address], 90675, 05/31/2019 13:00:31 05/31/19 20 05/31/2019 creat inine , serum or plasm a creatinine 0.8 mg/dL 0.8-1. 3 Not Available [address], 22476, 05/31/2019 15:17:36 05/31/1905/31/2019 creat inine , serum or plasm a GFR -non 79.7 mL/mi n Recom daniel d GFR by the Natio nal Kidne y Found ation >60 mL/mi n/1.7 3m2 - Karina l <60 mL/mi n/1.7 3m2 - Chron ic Kidne y Disea se <15 mL/mi n/1.7 3m2 - Kidne y Failu re Not Available [address], 60003, 05/31/2019 15:17:36 05/31/1905/31/2019 creat inine , serum or plasm a GFR - if 91.6 mL/mi n For Afric an Ameri can patie nts: Resul ts Multi plied by 1.21 Not Available [address], 57841, 05/31/2019 15:17:36 05/31/19 20 05/31/2019 C-marla ctive prote in, quant itati ve, serum or plasm a C-reactive protein -quant 3.3 mg/L 0.0-9. 0 Not Available [address], 34572, 05/31/2019 15:17:38 05/31/19 20 05/31/2019 lipid panel , serum cholesterol 181 mg/dL <200 mg/dl Portillo able 200-2 39 mg/dl Borde rline High >240 mg/dl High Not Available [address], 98983, 05/31/2019 15:35:02 05/31/19 20 05/31/2019 lipid panel , serum triglyceride s 54 mg/dL <150 mg/dL Karina l 150-1 99 mg/dL Borde rline High 200-4 99 mg/dL High >500 mg/dL Very High Not Available [address], 14335, 05/31/2019 15:35:02 05/31/19 20 05/31/2019 lipid panel , serum direct HDL 66 mg/dL <40 mg/dl - Major Risk for CHD >60 mg/dl - Negat louisa Risk for CHD Not Available [address], 92493, 05/31/2019 15:35:02 05/31/19 20 05/31/2019 LDL, calcu zita , serum (OBS) LDL - calculated 104.2 RISK CATEG ORY LDL GOAL _ CHD or CHD Risk Equiv alent s <100 mg/dl (10-y ear risk >20%) 2+ Risk Facto rs <130 mg/dl (10-y ear risk <= 20%) 0-1 Risk Facto r? <160 mg/dl ? Almos t all peopl e with 0-1 risk facto r have a 10 year risk <10%, thus 10 year risk asses ment in peopl e with 0-1 risk facto r is not rishabhpatrice fleming. Not Available [address], 61737, 05/31/2019 15:35:04 05/31/19 20 05/31/2019 CMP, serum or plasm a glucose 99 mg/dL 70-100 Not Available [address], 28063, 05/31/2019 15:43:41 05/31/19 20 05/31/2019 CMP, serum or plasm a BUN 11 mg/dL 7-18 Not Available [address], 17266, 05/31/2019 15:43:41 05/31/19 20 05/31/2019 CMP, serum or plasm a creatinine 0.8 mg/dL 0.8-1. 3 Not Available [address], 60773, 05/31/2019 15:43:41 05/31/19 20 05/31/2019 CMP, serum or plasm a B/C 13.8 ratio Not Available [address], 72494, 05/31/2019 15:43:41 05/31/19 20 05/31/2019 CMP, serum or plasm a GFR -non 79.7 mL/mi n Recom daniel d GFR by the Natio nal Kidne y Found ation >60 mL/mi n/1.7 3m2 - Karina l <60 mL/mi n/1.7 3m2 - Chron ic Kidne y Disea se <15 mL/mi n/1.7 3m2 - Kidne y Failu re Not Available [address], 58664, 05/31/2019 15:43:41 05/31/19 20 05/31/2019 CMP, serum or plasm a GFR - if 91.6 mL/mi n For Afric an Ameri can patie nts: Resul ts Multi plied by 1.21 Not Available [address], 66163, 05/31/2019 15:43:41 05/31/19 20 05/31/2019 CMP, serum or plasm a sodium 143 mmol/ L 136-14 5 Not Available [address], 92550, 05/31/2019 15:43:41 05/31/19 20 05/31/2019 CMP, serum or plasm a potassium 4.3 mmol/ L 3.5-5. 1 Not Available [address], 17545, 05/31/2019 15:43:41 05/31/1905/31/2019 CMP, serum or plasm a chloride 105 mmol/ L 96-107 Not Available [address], 60605, 05/31/2019 15:43:41 05/31/1905/31/2019 CMP, serum or plasm a anion gap 8.4 5.0-15 .0 Not Available [address], 30937, 05/31/2019 15:43:41 05/31/1905/31/2019 CMP, serum or plasm a CO2 30 mmol/ L 21-32 Not Available [address], 60456, 05/31/2019 15:43:41 05/31/1905/31/2019 CMP, serum or plasm a calcium 9.6 mg/dL 8.5-10 .3 Not Available [address], 70844, 05/31/2019 15:43:41 05/31/1905/31/2019 CMP, serum or plasm a total protein 8.0 g/dL 6.4-8. 2 Not Available [address], 44878, 05/31/2019 15:43:41 05/31/19 20 05/31/2019 CMP, serum or plasm a albumin 3.7 g/dL 3.4-5. 0 Not Available [address], 15359, 05/31/2019 15:43:41 05/31/19 20 05/31/2019 CMP, serum or plasm a globulin 4.3 g/dL Not Available [address], 65912, 05/31/2019 15:43:41 05/31/19 20 05/31/2019 CMP, serum or plasm a A/G 0.9 ratio 0.8-2. 0 Not Available [address], 06778, 05/31/2019 15:43:41 05/31/19 20 05/31/2019 CMP, serum or plasm a total bilirubin 0.40 mg/dL 0.00-1 .00 Not Available [address], 58158, 05/31/2019 15:43:41 05/31/19 20 05/31/2019 CMP, serum or plasm a AST 19 U/L 0-37 Not Available [address], 67957, 05/31/2019 15:43:41 05/31/19 20 05/31/2019 CMP, serum or plasm a ALT 32 U/L 6-63 Not Available [address], 92594, 05/31/2019 15:43:41 05/31/19 20 05/31/2019 CMP, serum or plasm a alk. phos. 67 U/L 50-136 Not Available [address], 80586, 05/31/2019 15:43:41 05/31/19 20 05/31/2019 bilir ubin, direc t, serum or plasm a direct bilirubin 0.10 mg/dL 0.00-0 .30 Not Available [address], 09860, 05/31/2019 15:43:41 05/31/19 20 05/31/2019 eryth rocyt e sedim entat ion rate by michelle hill sed rate 33.0 0.0-15 .0 high Not Available [address], 32417, 05/31/2019 16:44:02 03/28/20 20 03/28/2020 CBC WBC 5.81 K/? ? ?L 3.98-1 0.04 Not Available [address], 12490, 03/28/2020 14:47:47 03/28/2003/28/2020 CBC RBC 4.09 M/? ? ?L 3.93-5 .22 Not Available [address], 38347, 03/28/2020 14:47:47 03/28/2003/28/2020 CBC HGB 13.3 g/dL 11.2-1 5.7 Not Available [address], 45603, 03/28/2020 14:47:47 03/28/2003/28/2020 CBC HCT 40.9 % 34.1-4 4.9 Not Available [address], 74644, 03/28/2020 14:47:47 03/28/2003/28/2020 CBC MCV 100.0 fL 79.4-9 4.8 high Not Available [address], 90026, 03/28/2020 14:47:47 03/28/2003/28/2020 CBC MCH 32.5 pg 25.6-3 2.2 high Not Available [address], 04067, 03/28/2020 14:47:47 03/28/20 20 03/28/2020 CBC MCHC 32.5 g/dL 32.2-3 5.5 Not Available [address], 14104, 03/28/2020 14:47:47 03/28/20 20 03/28/2020 CBC plt 171 K/? ? ?L 182-36 9 low Not Available [address], 70121, 03/28/2020 14:47:47 03/28/2003/28/2020 CBC MPV 13.3 fL 9.4-12 .3 high Not Available [address], 17919, 03/28/2020 14:47:47 03/28/20 20 03/28/2020 CBC neut% 53.3 % 34.0-7 1.1 Not Available [address], 57875, 03/28/2020 14:47:47 03/28/20 20 03/28/2020 CBC neut# 3.10 1.56-6 .13 Not Available [address], 71917, 03/28/2020 14:47:47 03/28/20 20 03/28/2020 CBC lymph % 31.0 % 19.3-5 1.7 Not Available [address], 94244, 03/28/2020 14:47:47 03/28/2003/28/2020 CBC lymph # 1.80 K/? ? ?L 1.18-3 .74 Not Available [address], 89885, 03/28/2020 14:47:47 03/28/20 20 03/28/2020 CBC mono% 10.0 % 4.7-12 .5 Not Available [address], 36072, 03/28/2020 14:47:47 03/28/20 20 03/28/2020 CBC mono# 0.58 0.24-0 .56 high Not Available [address], 38432, 03/28/2020 14:47:47 03/28/20 20 03/28/2020 CBC eo% 4.6 % 0.7-5. 8 Not Available [address], 31317, 03/28/2020 14:47:47 03/28/20 20 03/28/2020 CBC eo# 0.27 0.04-0 .36 Not Available [address], 24338, 03/28/2020 14:47:47 03/28/20 20 03/28/2020 CBC baso% 0.9 % 0.1-1. 2 Not Available [address], 90636, 03/28/2020 14:47:47 03/28/20 20 03/28/2020 CBC baso# 0.05 0.00-0 .08 Not Available [address], 65523, 03/28/2020 14:47:47 03/28/20 20 03/28/2020 CBC RDW-CV 12.7 % 11.7-1 4.4 Not Available [address], 34477, 03/28/2020 14:47:47 03/28/20 20 03/28/2020 CBC Ig% 0.200 % 0.000- 1.500 Ig % >0.5 Indic ates possi ble Left Shift Not Available [address], 45887, 03/28/2020 14:47:47 03/28/20 20 03/28/2020 CBC Ig# 0.010 0.000- 0.093 Not Available [address], 85331, 03/28/2020 14:47:47 03/28/20 20 03/28/2020 CBC NRBC% 0.0 % 0.0-0. 2 Not Available [address], 04679, 03/28/2020 14:47:47 03/28/20 20 03/28/2020 CBC NRBC# 0.000 0.000- 0.012 Not Available [address], 39605, 03/28/2020 14:47:47 03/28/20 20 03/28/2020 CBC ipf% 8.6 % 0.9-11 .2 Not Available [address], 59674, 03/28/2020 14:47:47 03/28/20 20 03/28/2020 HbA1c (hemo globi n A1c), blood hemoglobin A1C 6.2 % 4.8-6. 0 high Goal: <7% in Patie nts with Diabe tracey An A1c betwe en 5.7-6 .4% is ident ified as pre-d iabet es and sugge sts risk for progr essio n to diabe tracey Two a1c value s of 6.5% or highe r is consi stent with a diagn osis of diabe tracey but may need furth er confi rmati on Not Available [address], 58432, 03/28/2020 15:49:27 03/28/20 20 03/28/2020 HbA1c (hemo globi n A1c), blood estimated average glucose 131.2 mg/dL Not Available [address], 89098, 03/28/2020 15:49:27 03/28/20 20 03/28/2020 eryth rocyt e sedim entat ion rate by michelle park metho d sed rate 48.0 0.0-15 .0 high Not Available [address], 55778, 03/28/2020 16:30:21 03/28/20 20 03/28/2020 micro album in, urine microalbumin 9.6 mg/L 1.3-20 .0 Not Available [address], 53348, 03/28/2020 16:34:22 03/28/20 20 03/28/2020 micro album in, urine creatinine urine 75.6 mg/dL 30.0-1 25.0 Not Available [address], 95058, 03/28/2020 16:34:22 03/28/20 20 03/28/2020 micro album in, urine microalb/cre at ratio 12.7 mg/g_ creat 0.0-29 .0 Not Available [address], 69371, 03/28/2020 16:34:22 03/28/20 20 03/28/2020 CMP, serum or plasm a glucose 112 mg/dL 70-100 high Not Available [address], 28679, 03/28/2020 16:39:30 03/28/20 20 03/28/2020 CMP, serum or plasm a BUN 13 mg/dL 7-18 Not Available [address], 80537, 03/28/2020 16:39:30 03/28/20 20 03/28/2020 CMP, serum or plasm a creatinine 0.9 mg/dL 0.8-1. 3 Not Available [address], 39722, 03/28/2020 16:39:30 03/28/20 20 03/28/2020 CMP, serum or plasm a B/C 14.4 ratio Not Available [address], 25643, 03/28/2020 16:39:30 03/28/20 20 03/28/2020 CMP, serum or plasm a GFR -non 69.3 mL/mi n Recom daniel d GFR by the Natio nal Kidne y Found ation >60 mL/mi n/1.7 3m2 - Karina l <60 mL/mi n/1.7 3m2 - Chron ic Kidne y Disea se <15 mL/mi n/1.7 3m2 - Kidne y Failu re Not Available [address], 89127, 03/28/2020 16:39:30 03/28/20 20 03/28/2020 CMP, serum or plasm a GFR - if 79.7 mL/mi n For Afric an Ameri can patie nts: Resul ts Multi plied by 1.21 Not Available [address], 07389, 03/28/2020 16:39:30 03/28/20 20 03/28/2020 CMP, serum or plasm a sodium 143 mmol/ L 136-14 5 Not Available [address], 03355, 03/28/2020 16:39:30 03/28/20 20 03/28/2020 CMP, serum or plasm a potassium 3.9 mmol/ L 3.5-5. 1 Not Available [address], 94765, 03/28/2020 16:39:30 03/28/20 20 03/28/2020 CMP, serum or plasm a chloride 103 mmol/ L 96-107 Not Available [address], 70205, 03/28/2020 16:39:30 03/28/20 20 03/28/2020 CMP, serum or plasm a anion gap 12.0 5.0-15 .0 Not Available [address], 77774, 03/28/2020 16:39:30 03/28/20 20 03/28/2020 CMP, serum or plasm a CO2 28 mmol/ L 21-32 Not Available [address], 98100, 03/28/2020 16:39:30 03/28/20 20 03/28/2020 CMP, serum or plasm a calcium 9.4 mg/dL 8.5-10 .3 Not Available [address], 76131, 03/28/2020 16:39:30 03/28/20 20 03/28/2020 CMP, serum or plasm a total protein 7.9 g/dL 6.4-8. 2 Not Available [address], 13390, 03/28/2020 16:39:30 03/28/20 20 03/28/2020 CMP, serum or plasm a albumin 3.6 g/dL 3.4-5. 0 Not Available [address], 93632, 03/28/2020 16:39:30 03/28/20 20 03/28/2020 CMP, serum or plasm a globulin 4.3 g/dL Not Available [address], 30034, 03/28/2020 16:39:30 03/28/20 20 03/28/2020 CMP, serum or plasm a A/G 0.8 ratio 0.8-2. 0 Not Available [address], 05949, 03/28/2020 16:39:30 03/28/20 20 03/28/2020 CMP, serum or plasm a total bilirubin 0.30 mg/dL 0.00-1 .00 Not Available [address], 22543, 03/28/2020 16:39:30 03/28/20 20 03/28/2020 CMP, serum or plasm a AST 28 U/L 0-37 Not Available [address], 96069, 03/28/2020 16:39:30 03/28/20 20 03/28/2020 CMP, serum or plasm a ALT 54 U/L 6-63 Not Available [address], 45812, 03/28/2020 16:39:30 03/28/20 20 03/28/2020 CMP, serum or plasm a alk. phos. 78 U/L 50-136 Not Available [address], 60034, 03/28/2020 16:39:30 03/28/20 20 03/28/2020 lipid panel , serum cholesterol 219 mg/dL <200 mg/dl Portillo able 200-2 39 mg/dl Borde rline High >240 mg/dl High Not Available [address], 96146, 03/28/2020 16:39:30 03/28/20 20 03/28/2020 lipid panel , serum triglyceride s 178 mg/dL LIPS= Speci men Sligh tly Lipem ic. Chem Resul ts may be effec rafi. <150 mg/dL Karina l 150-1 99 mg/dL Borde rline High 200-4 99 mg/dL High >500 mg/dL Very High Not Available [address], 42127, 03/28/2020 16:39:30 03/28/20 20 03/28/2020 lipid panel , serum direct HDL 61 mg/dL <40 mg/dl - Major Risk for CHD >60 mg/dl - Negat louisa Risk for CHD Not Available [address], 20336, 03/28/2020 16:39:30 03/28/20 20 03/28/2020 LDL, direc t, serum direct LDL 133 mg/dL RISK CATEG ORY LDL GOAL _ CHD or CHD Risk Equiv alent s <100 mg/dl (10-y ear risk >20%) 2+ Risk Facto rs <130 mg/dl (10-y ear risk <= 20%) 0-1 Risk Facto r? <160 mg/dl ? Almos t all peopl e with 0-1 risk facto r have a 10 year risk <10%, thus 10 year risk asses ment in peopl e with 0-1 risk facto r is not necpatrice fleming. Not Available [address], 86753, 03/28/2020 16:39:31 03/28/20 20 03/28/2020 C-marla ctive prote in, quant itati ve, serum or plasm a C-reactive protein -quant <2.0 mg/L 0.0-9. 0 < Not Available [address], 95939, 03/28/2020 16:55:31 03/28/20 20 03/30/2020 hepat itis C virus Ab, serum hepatitis C antibody NON-RE ACTIVE non-re active normal Not Available [facility] [address], [place], [address], 03/30/2020 01:57:08 03/28/20 20 03/30/2020 hepat itis C virus Ab, serum signal to cut-off 0.03 <1.00 normal HCV antib alberta was non-r eacti ve. There is no labor atory evide nce of HCV infec tion. In most cases , no furth er actio n is requi red. Howev er, if recen t HCV expos ure is suspe cted, a test for HCV RNA (test code 81862 ) is sugge sted. For addit ional infor heidi stoner e refer to http: //[facility] galaviz[facility] stdia gnost ics.c om/fa q/FAQ 22v1 (This link is being provi ded for infor heidi nal/ educa mayuri l purpo ses only. ) Not Available [facility] [address], [place], [address], 03/30/2020 01:57:08 03/28/20 20 03/30/2020 dupli rossi repor t reque st duplicate report request See Below [facility] was unabl e to send the dupli rossi repor t(s) as you reque ivan villafana se of incom plete or illeg ible maili ng infor matio n. [employer] [place] [employer] requi res the follo wing infor matio n: Name Filomena chavira with numbe r City, state and zip code (5-9 digit s) Pleas e check your recor ds to ident sandeep the speci fic infor matio n that was ashok jeffers and traci t us by forwa rding this repor t to the [facility] priat e physi moody. You will need to forwa rd this repor t if neces bernadette. REPOR T COMME NT: CC DOCTO R 1 BRETT PLASCENCIA MD Not Available [facility] [address] [place] [address], [place], [address], 03/30/2020 01:57:12 10/20/19 21 10/19/2020 CBC WBC 4.75 K/? ? ?L 3.98-1 0.04 Not Available [address], 65426, 10/19/2020 10:43:27 10/20/19 21 10/19/2020 CBC RBC 4.28 M/? ? ?L 3.93-5 .22 Not Available [address], 81420, 10/19/2020 10:43:27 10/20/19 21 10/19/2020 CBC HGB 13.5 g/dL 11.2-1 5.7 Not Available [address], 50397, 10/19/2020 10:43:27 10/20/19 21 10/19/2020 CBC HCT 41.9 % 34.1-4 4.9 Not Available [address], 69326, 10/19/2020 10:43:27 10/20/19 21 10/19/2020 CBC MCV 97.9 fL 79.4-9 4.8 high Not Available [address], 71290, 10/19/2020 10:43:27 10/20/19 21 10/19/2020 CBC MCH 31.5 pg 25.6-3 2.2 Not Available [address], [address], 10/19/2020 10:43:27 10/20/19 21 10/19/2020 CBC MCHC 32.2 g/dL 32.2-3 5.5 Not Available [address], [address], 10/19/2020 10:43:27 10/20/19 21 10/19/2020 CBC plt 197 K/? ? ?L 182-36 9 Not Available [address], [address], 10/19/2020 10:43:27 10/20/19 21 10/19/2020 CBC MPV 12.0 fL 9.4-12 .3 Not Available [address], [address], 10/19/2020 10:43:27 10/20/19 21 10/19/2020 CBC neut% 45.2 % 34.0-7 1.1 Not Available [address], [address], 10/19/2020 10:43:27 10/20/19 21 10/19/2020 CBC neut# 2.15 1.56-6 .13 Not Available [address], [address], 10/19/2020 10:43:27 10/20/19 21 10/19/2020 CBC lymph % 35.2 % 19.3-5 1.7 Not Available [address], [address], 10/19/2020 10:43:27 10/20/19 21 10/19/2020 CBC lymph # 1.67 K/? ? ?L 1.18-3 .74 Not Available [address], [address], 10/19/2020 10:43:27 10/20/19 21 10/19/2020 CBC mono% 10.3 % 4.7-12 .5 Not Available [address], [address], 10/19/2020 10:43:27 10/20/19 21 10/19/2020 CBC mono# 0.49 0.24-0 .56 Not Available [address], [address], 10/19/2020 10:43:27 10/20/19 21 10/19/2020 CBC eo% 7.6 % 0.7-5. 8 high Not Available [address], [address], 10/19/2020 10:43:27 10/20/19 21 10/19/2020 CBC eo# 0.36 0.04-0 .36 Not Available [address], [address], 10/19/2020 10:43:27 10/20/19 21 10/19/2020 CBC baso% 1.5 % 0.1-1. 2 high Not Available [address], [address], 10/19/2020 10:43:27 10/20/19 21 10/19/2020 CBC baso# 0.07 0.00-0 .08 Not Available [address], [address], 10/19/2020 10:43:27 10/20/19 21 10/19/2020 CBC RDW-CV 13.2 % 11.7-1 4.4 Not Available [address], [address], 10/19/2020 10:43:27 10/20/19 21 10/19/2020 CBC Ig% 0.200 % 0.000- 1.500 Ig % >0.5 Indic ates possi ble Left Shift Not Available [address], [address], 10/19/2020 10:43:27 10/20/19 21 10/19/2020 CBC Ig# 0.010 0.000- 0.093 Not Available 02 [address], [address], 10/19/2020 10:43:27 10/20/19 21 10/19/2020 CBC NRBC% 0.0 % 0.0-0. 2 Not Available [address], [address], 10/19/2020 10:43:27 10/20/19 21 10/19/2020 CBC NRBC# 0.000 0.000- 0.012 Not Available [address], [address], 10/19/2020 10:43:27 10/20/19 21 10/19/2020 eryth rocyt e sedim entat ion rate by michelle calderon d sed rate 23.0 0.0-15 .0 high Not Available [address], [address], 10/19/2020 12:10:01 10/20/19 21 10/19/2020 CMP, serum or plasm a glucose 103 mg/dL 70-100 high Not Available [address], [address], 10/19/2020 14:08:43 10/20/19 21 10/19/2020 CMP, serum or plasm a BUN 13 mg/dL 7-18 Not Available [address], [address], 10/19/2020 14:08:43 10/20/19 21 10/19/2020 CMP, serum or plasm a creatinine 0.8 mg/dL 0.8-1. 3 Not Available [address], [address], 10/19/2020 14:08:43 10/20/19 21 10/19/2020 CMP, serum or plasm a B/C 16.3 ratio Not Available [address], [address], 10/19/2020 14:08:43 10/20/19 21 10/19/2020 CMP, serum or plasm a GFR -non 79.4 mL/mi n Recom daniel d GFR by the Natio nal Kidne y Found ation >60 mL/mi n/1.7 3m2 - Karina l <60 mL/mi n/1.7 3m2 - Chron ic Kidne y Disea se <15 mL/mi n/1.7 3m2 - Kidne y Failu re Not Available [address], [address], 10/19/2020 14:08:43 10/20/19 21 10/19/2020 CMP, serum or plasm a GFR - if 91.3 mL/mi n For Afric an Ameri can patie nts: Resul ts Multi plied by 1.21 Not Available [address], [address], 10/19/2020 14:08:43 10/20/19 21 10/19/2020 CMP, serum or plasm a sodium 143 mmol/ L 136-14 5 Not Available [address], [address], 10/19/2020 14:08:43 10/20/19 21 10/19/2020 CMP, serum or plasm a potassium 4.3 mmol/ L 3.5-5. 1 Not Available [address], [address], 10/19/2020 14:08:43 10/20/19 21 10/19/2020 CMP, serum or plasm a chloride 107 mmol/ L 96-107 Not Available [address], [address], 10/19/2020 14:08:43 10/20/19 21 10/19/2020 CMP, serum or plasm a anion gap 8.2 5.0-15 .0 Not Available [address], [address], 10/19/2020 14:08:43 10/20/1910/19/2020 CMP, serum or plasm a CO2 28 mmol/ L 21-32 Not Available [address], [address], 10/19/2020 14:08:43 10/20/1910/19/2020 CMP, serum or plasm a calcium 9.2 mg/dL 8.5-10 .3 Not Available [address], [address], 10/19/2020 14:08:43 10/20/1910/19/2020 CMP, serum or plasm a total protein 7.8 g/dL 6.4-8. 2 Not Available [address], [address], 10/19/2020 14:08:43 10/20/1910/19/2020 CMP, serum or plasm a albumin 3.6 g/dL 3.4-5. 0 Not Available [address], [address], 10/19/2020 14:08:43 10/20/19 21 10/19/2020 CMP, serum or plasm a globulin 4.2 g/dL Not Available [address], [address], 10/19/2020 14:08:43 10/20/19 21 10/19/2020 CMP, serum or plasm a A/G 0.9 ratio 0.8-2. 0 Not Available [address], [address], 10/19/2020 14:08:43 10/20/19 21 10/19/2020 CMP, serum or plasm a total bilirubin 0.30 mg/dL 0.00-1 .00 Not Available [address], [address], 10/19/2020 14:08:43 10/20/19 21 10/19/2020 CMP, serum or plasm a AST 22 U/L 0-37 Not Available [address], [address], 10/19/2020 14:08:43 10/20/19 21 10/19/2020 CMP, serum or plasm a ALT 44 U/L 6-63 Not Available [address], [address], 10/19/2020 14:08:43 10/20/19 21 10/19/2020 CMP, serum or plasm a alk. phos. 73 U/L 50-136 Not Available [address], [address], 10/19/2020 14:08:43 10/20/19 21 10/19/2020 C-marla ctive prote in, quant itati ve, serum or plasm a C-reactive protein -quant <2.0 mg/L 0.0-9. 0 < Verif ied by annette moore Not Available [address], [address], 10/19/2020 14:08:44 02/27/20 22 02/27/2022 CBC WBC 6.19 K/? ? ?L 3.98-1 0.04 Not Available [address], [address], 02/27/2022 08:42:11 02/27/20 22 02/27/2022 CBC RBC 4.08 M/? ? ?L 3.93-5 .22 Not Available [address], [address], 02/27/2022 08:42:11 02/27/20 22 02/27/2022 CBC HGB 13.0 g/dL 11.2-1 5.7 Not Available [address], [address], 02/27/2022 08:42:11 02/27/20 22 02/27/2022 CBC HCT 40.3 % 34.1-4 4.9 Not Available [address], [address], 02/27/2022 08:42:11 02/27/20 22 02/27/2022 CBC MCV 98.8 fL 79.4-9 4.8 high Not Available [address], [address], 02/27/2022 08:42:11 02/27/20 22 02/27/2022 CBC MCH 31.9 pg 25.6-3 2.2 Not Available [address], [address], 02/27/2022 08:42:11 02/27/20 22 02/27/2022 CBC MCHC 32.3 g/dL 32.2-3 5.5 Not Available [address], [address], 02/27/2022 08:42:11 02/27/20 22 02/27/2022 CBC plt 167 K/? ? ?L 182-36 9 low Not Available [address], [address], 02/27/2022 08:42:11 02/27/20 22 02/27/2022 CBC MPV 12.8 fL 9.4-12 .3 high Not Available [address], [address], 02/27/2022 08:42:11 02/27/20 22 02/27/2022 CBC neut% 59.5 % 34.0-7 1.1 Not Available [address], [address], 02/27/2022 08:42:11 02/27/20 22 02/27/2022 CBC neut# 3.68 1.56-6 .13 Not Available [address], [address], 02/27/2022 08:42:11 02/27/20 22 02/27/2022 CBC lymph % 25.0 % 19.3-5 1.7 Not Available [address], [address], 02/27/2022 08:42:11 02/27/20 22 02/27/2022 CBC lymph # 1.55 K/? ? ?L 1.18-3 .74 Not Available [address], [address], 02/27/2022 08:42:11 02/27/20 22 02/27/2022 CBC mono% 10.3 % 4.7-12 .5 Not Available [address], [address], 02/27/2022 08:42:11 02/27/20 22 02/27/2022 CBC mono# 0.64 0.24-0 .56 high Not Available [address], [address], 02/27/2022 08:42:11 02/27/20 22 02/27/2022 CBC eo% 4.2 % 0.7-5. 8 Not Available [address], [address], 02/27/2022 08:42:11 02/27/20 22 02/27/2022 CBC eo# 0.26 0.04-0 .36 Not Available [address], [address], 02/27/2022 08:42:11 02/27/20 22 02/27/2022 CBC baso% 0.8 % 0.1-1. 2 Not Available [address], [address], 02/27/2022 08:42:11 02/27/20 22 02/27/2022 CBC baso# 0.05 0.00-0 .08 Not Available [address], [address], 02/27/2022 08:42:11 02/27/20 22 02/27/2022 CBC RDW-CV 13.2 % 11.7-1 4.4 Not Available [address], [address], 02/27/2022 08:42:11 02/27/20 22 02/27/2022 CBC Ig% 0.200 % 0.000- 1.500 Ig % >0.5 Indic ates possi ble Left Shift Not Available [address], [address], 02/27/2022 08:42:11 02/27/20 22 02/27/2022 CBC Ig# 0.010 0.000- 0.093 Not Available [address], [address], 02/27/2022 08:42:11 02/27/20 22 02/27/2022 CBC NRBC% 0.0 % 0.0-0. 2 Not Available [address], [address], 02/27/2022 08:42:11 02/27/20 22 02/27/2022 CBC NRBC# 0.000 0.000- 0.012 Not Available [address], [address], 02/27/2022 08:42:11 02/27/20 22 02/27/2022 ESR sed rate 24.0 0.0-15 .0 high Not Available [address], [address], 02/27/2022 10:12:40 02/27/20 22 02/27/2022 COMP. METAB OLIC PANEL glucose 89 mg/dL 70-100 Not Available [address], [address], 02/27/2022 11:24:53 02/27/20 22 02/27/2022 COMP. METAB OLIC PANEL BUN 15 mg/dL 7-18 Not Available [address], [address], 02/27/2022 11:24:53 02/27/20 22 02/27/2022 COMP. METAB OLIC PANEL creatinine 0.9 mg/dL 0.8-1. 3 Not Available [address], [address], 02/27/2022 11:24:53 02/27/20 22 02/27/2022 COMP. METAB OLIC PANEL B/C 16.7 ratio Not Available [address], [address], 02/27/2022 11:24:53 02/27/20 22 02/27/2022 COMP. METAB OLIC PANEL GFR >=60ML /MIN mL/mi n normal >=60m L/min - Karina l or midly reduc ed <60mL /min- Decre ased kidne y funct ion <15mL /min - Kidne y failu re [facility] calcu lates estim ated Glome rular Filtr ation Rate (eGFR ) using the Chron ic Kidne y Disea se Epide miolo gy Colla borat ion (CKD- EPI) Equat ion (Rashard english et. al 2021) as recom daniel d by the Natio nal Kidne y Found ation . eGFR is based on age, serum creat inine , and sex. CKD-E PI does not calcu late eGFR by race, does not apply to child samuel (age <18 years ), and randyul d not be used in pregn raquel. Not Available [address], [address], 02/27/2022 11:24:53 02/27/20 22 02/27/2022 COMP. METAB OLIC PANEL sodium 143 mmol/ L 136-14 5 Not Available [address], [address], 02/27/2022 11:24:53 02/27/20 22 02/27/2022 COMP. METAB OLIC PANEL potassium 4.0 mmol/ L 3.5-5. 1 Not Available [address], [address], 02/27/2022 11:24:53 02/27/20 22 02/27/2022 COMP. METAB OLIC PANEL chloride 104 mmol/ L 96-107 Not Available [address], [address], 02/27/2022 11:24:53 02/27/20 22 02/27/2022 COMP. METAB OLIC PANEL anion gap 11.3 5.0-15 .0 Not Available [address], [address], 02/27/2022 11:24:53 02/27/20 22 02/27/2022 COMP. METAB OLIC PANEL CO2 28 mmol/ L 21-32 Not Available [address], [address], 02/27/2022 11:24:53 02/27/20 22 02/27/2022 COMP. METAB OLIC PANEL calcium 9.4 mg/dL 8.5-10 .3 Not Available [address], [address], 02/27/2022 11:24:53 02/27/20 22 02/27/2022 COMP. METAB OLIC PANEL total protein 7.9 g/dL 6.4-8. 2 Not Available [address], [address], 02/27/2022 11:24:53 02/27/20 22 02/27/2022 COMP. METAB OLIC PANEL albumin 3.9 g/dL 3.4-5. 0 Not Available [address], [address], 02/27/2022 11:24:53 02/27/20 22 02/27/2022 COMP. METAB OLIC PANEL globulin 4.0 g/dL Not Available [address], [address], 02/27/2022 11:24:53 02/27/20 22 02/27/2022 COMP. METAB OLIC PANEL A/G 1.0 ratio 0.8-2. 0 Not Available [address], [address], 02/27/2022 11:24:53 02/27/20 22 02/27/2022 COMP. METAB OLIC PANEL total bilirubin 0.30 mg/dL 0.00-1 .00 Not Available [address], [address], 02/27/2022 11:24:53 02/27/20 22 02/27/2022 COMP. METAB OLIC PANEL AST 25 U/L 0-37 Not Available [address], [address], 02/27/2022 11:24:53 02/27/20 22 02/27/2022 COMP. METAB OLIC PANEL ALT 39 U/L 6-63 Not Available [address], [address], 02/27/2022 11:24:53 02/27/20 22 02/27/2022 COMP. METAB OLIC PANEL alk. phos. 65 U/L 50-136 Not Available [address], [address], 02/27/2022 11:24:53 02/27/2002/27/2022 C-MARLA CTIVE PROTE IN-QU ANTIT ATIVE C-reactive protein -quant <2.0 mg/L 0.0-9. 0 < Not Available [address], [address], 02/27/2022 13:53:36 Result Notes None recorded. Problems Name Problem SNOMED Code Status Onset Date Resolution Date Notes Provider Name and Address Organization Details Recorded Time Joint pain in ankle and foot Completed 03/17/2013 OSVALDO Serrano, [employer]NAGER-C [address] [place], [place] [address], [address], [facility] [facility] 10:17:39 Benign essential hypertens ion 7255002 Active 2011 new patient OSVALDO Serrano, [employer] COMM[employer] MANAGER-C [address] [place], [place] [address], [address], [facility] [place] [facility] 13:11:44 Low back pain 477182212 Active OSVALDO Serrano, [employer] COMM[employer] MANAGER-C [address] [place], [place] [address], [address], [facility] [place] [facility] 10:17:39 Carpal tunnel syndrome 35748048 Active OSVALDO Serrano, [employer] COMM[employer]ITY MANAGER-C [address] [place], [place] [address], [address], [facility] [place] [facility] 10:17:39 Abnormal findings on diagnosti c imaging of breast 781411773 Active OSVALDO Serrano, [employer] COMM[employer] MANAGER-C [address] [place], [place] [address], [address], [facility] [place] [facility] 10:17:39 Asthma 352148461 Active OSVALDO Serrano, [employer] COMM[employer] MANAGER-C [address] [place], [place] [address], [address], [facility] [place] [facility] 13:11:44 Rheumatoi d arthritis 21225691 Active OSVALDO Serrano, [employer] COMM[employer] MANAGER-C [address] [place], [place] [address], 1, [facility] [place] [facility] 10:17:39 Excess skin of eyelid 504095599 Active OSVALDO Serrano, [employer] COMM[employer] MANAGER-C [address] [place] [address], 1, [facility] [place] [facility] 10:17:39 Nuclear sclerotic cataract 636581389 Active OSVALDO Serrano, [employer] COMMUNITY MANAGER-C [address] [place], [place] [address], 1, [facility] [place] [facility] 10:17:39 Hypermetr opia 14766183 Active OSVALDO Serrano, [employer] COMM[employer] MANAGER-C [address] [place] [address], 1, [facility] [place] [facility] 10:17:39 Regular astigmati sm 57621103 Active OSVALDO Serrano, [employer] COMMUNITY MANAGER-C [address] [place], [place] [address], 1, [facility] [place] [facility] 10:17:39 Presbyopi a 50404726 Active OSVALDO Serrano, [employer] COMMUNITY MANAGER-C [address] [place], [place] [address], 1, [facility] [place] 10:17:39 Nasal congestio n 55633353 Active OSVALDO Serrano, D[employer] COMMUNITY MANAGER-C [address] [place], [place] [address], 1, [facility] [place] [facility] 13:11:44 Problem Notes None recorded. Procedures Surgical History Date Name Laterality Status Provider Name and Address Organization Details Recorded Time 0 Trigger Finger Injection RB completed Fabien Crenshaw MD [address] [place] [address], [address], [facility] [place]/19/[place] 17:52:01 8 Medicare Wellness Visit completed Ynaira Garcia CMA [facility] 01/13/2018 13:32:29 8 Shoulder (Right) Injection completed Fabien Crenshaw MD [address] [place] [address], , [facility] 12/01/2017 19:55:00 8 Shoulder (Right) Injection completed Fabien Crenshaw MD [address] [place], [address], [facility] 06/02/2017 15:52:33 8 Asthma Control Test (12 + years old) completed Lucia Dupree [facility] 05/15/2017 10:31:24 7 Medicare Wellness Visit completed Lucille Dukes [facility] 10/28/2016 09:43:59 7 Cerumen Removal - Irrigation/Lava ge completed Patrick Gilman, MSN, [employer] COMM[employer] MANAGER-C [address] [place], [address], [facility] 10/28/2016 10:23:59 7 Asthma Control Test (12 + years old) completed Lucille Dukes [facility] 10/28/2016 09:49:58 6 Medicare Wellness Visit completed Hector Thapa [facility] 06/23/2015 09:35:55 6 Asthma Control Test (12 + years old) completed Hector Thapa [facility] 06/23/2015 09:54:48 5 Asthma Control Test (12 + years old) completed Lucille Dukes [facility] 01/19/2015 10:38:36 5 Refraction completed Beatriz Fregoso [facility] 11/15/2014 15:08:27 3 Medicare Wellness Visit completed Lucille Hernadez [facility] 01/14/2013 09:02:33 3 Asthma Control Test (12 + years old) completed Lucille Hernadez [facility] 01/14/2013 09:05:52 3 <strong>Functio nal</strong> Outcome - POC Documented Previously (G8942) completed Precious Lo, BRITTNEE [address] [place], [address], [facility] 12/31/2012 12:30:51 3 <strong>Pain</s ruben> Assessment and Follow-up (G8730) completed Precious Lo, PT [address] [place], [address], [facility] 11/24/2012 15:04:13 3 <strong>Functio nal</strong> Outcome w/ POC (G8539) completed Precious Lo, PT [address] [place], [address], [facility] 11/24/2012 15:04:13 Other (specify) completed Patrick Gilman, MSN, [employer] COMM[employer] MANAGER-C [address] [place], [address], [facility] 01/19/2015 10:17:33 Imaging Results None recorded. Procedure Notes None recorded. Medical Equipment None Reported. Allergies No known drug allergies Medications Name Sig Start Date Stop Date Status Note LastModified by Organization Details LastModified Time Prescript ion - New 10/28 completed Genesis claire k approval Not Available Not Available Not Available Prescript ion - Prior Authoriza tion Request active Not Available Not Available Not Available budesonid e 32 mcg/actua tion nasal spray [place] 1 spray every day by intranas al route at bedtime for 30 days. 2014 active Not Available Not Available Not Avai lable prednison e 10 mg tablet For flare up, take 3 po ad 1 day, 2 po qd 2d, 1 po qd for 2d, then stop. active Not Available Not Available No t Available ipratropi um 0.5 mg-albute rol 3 mg (2.5 mg base)/3 mL nebulizat ion soln INHALE THE CONTENTS OF 1 AMPULE USING NEBULIZE R QID IF NEEDED active Not Available Not Available No t Available enalapril maleate 10 mg tablet TK 1 T PO QD 04/07 completed Not Available Not Available Not Available albuterol sulfate 2.5 mg/3 mL (0.083 %) solution for nebulizat ion INHALE 3ML USING NEBULIZE R EVERY 6 HOURS NEEDED FOR WHEEZING active Not Available Not Available No t Available cetirizin e 10 mg tablet TAKE 1 TABLET BY MOUTH EVERY DAY active Not Available Not Available No t Available ketotifen 0.025 % (0.035 %) eye drops INSTILL 1 DROP INTO AFFECTED EYE(S) BY OPHTHALM IC ROUTE 2 TIMES PER DAY active Not Available Not Available No t Available ranitidin e 300 mg tablet TAKE 1 TABLET BY MOUTH EVERY DAY WHEN NEEDED 02/26 completed Not Available Not Available Not Available enalapril maleate 20 mg tablet TAKE 1 AND A 1/2 TABLETS BY MOUTH EVERY DAY active Not Available Not Available No t Available prednison e 20 mg tablet Take 2 tablets every day by oral route for 5 days. 01/19 completed Not Available Not Available Not Available Tubersol 5 tub. unit/0.1 mL intraderm al injection solution Inject 0.1 mL by intrader mal route. 07/21 completed Not Available Not Available Not Available simvastat in 10 mg tablet TAKE 1 TABLET BY MOUTH DAILY AT BEDTIME active Not Available Not Available No t Available leflunomi de 20 mg tablet TAKE 1 TABLET BY MOUTH EVERY DAY 2011 active Not Available Not Available Not Avai lable triamcino lone acetonide 0.1 % topical cream APPLY TOPICALL Y TO THE AFFECTED AREA TWICE DAILY active Not Available Not Available No t Available pravastat in 10 mg tablet active not taking Not Available Not Available Not Available diltiazem ER 120 mg capsule,2 4 hr,extend ed release active Not Available Not Available Not Available simvastat in 20 mg tablet TAKE 1 TABLET BY MOUTH DAILY AT BEDTIME active Not Available Not Available No t Available erythromy phyllis 5 mg/gram (0.5 %) eye ointment APPLY TO BOTH UPPER AND LOWER LIDS 4 TIMES A DAY active Not Available Not Available No t Available triamcino lone acetonide 0.1 % topical ointment APLICA TO THE AFFECTED AREA 2- 3 VECES CADA ALISHA 10/03 completed Not Available Not Available Not Available betametha sone dipropion ate 0.05 % topical cream APPLY A THIN LAYER TO THE AFFECTED AREA(S) BY TOPICAL ROUTE ONCE DAILY 05/15 completed Not Available Not Available Not Available doxazosin 4 mg tablet TAKE 1 TABLET BY MOUTH DAILY active Not Available Not Available No t Available diltiazem CD 120 mg capsule,e xtended release 24 hr TAKE ONE CAPSULE BY MOUTH EVERY DAY active Not Available Not Available No t Available monteluka st 10 mg tablet TAKE 1 TABLET BY MOUTH DAILY IN THE EVENING active Not Available Not Available No t Available hydroxyzi ne HCl 25 mg tablet TK 1 T PO TID FOR 14 DAYS 10/17 completed took last tablet this morning. Not Available Not Available Not Available fluticaso ne propionat e 220 mcg/actua tion HFA aerosol inhaler INHALE 1 PUFF BY MOUTH TWICE DAILY active Not Available Not Available No t Available azelastin e 137 mcg (0.1 %) nasal spray USE 2 SPRAYS IN EACH NOSTRIL DAILY NEEDED FOR ALLERGIE S active Not Available Not Available No t Available diazepam 10 mg tablet TAKE 1 TO 3 TABLETS BY MOUTH DAY OF PROCEDUR E active Not Available Not Available No t Available hydroxych loroquine 200 mg tablet TK 1 T PO QD 01/13 completed Not Available Not Available Not Available Nasonex 50 mcg/actua tion [place] U 2 SPRAYS IEN QD active Not Available Not Available No t Available ibuprofen 600 mg tablet TAKE 1 TABLET BY MOUTH THREE TIMES DAILY WITH FOOD active Not Available Not Available No t Available ketoconaz ole 2 % topical cream LIANA EXT AA QD 10/28 completed daily Not Available Not Available Not Available fluticaso ne propionat e 50 mcg/actua tion nasal spray,jeana pension SHAKE LIQUID AND USE 1 SPRAY IN EACH NOSTRIL TWICE DAILY active Not Available Not Available No t Available loratadin e 10 mg tablet Take 1 tablet every day by oral route for 30 days. 09/13 completed Not Available Not Available Not Available Ventolin HFA 90 mcg/actua tion aerosol inhaler INHALE 1 PUFF BY MOUTH TWICE DAILY active Not Available Not Available No t Available hydroxyzi ne pamoate 25 mg capsule TK 1 C PO HS PRF COMEZONE 10/03 completed Not Available Not Available Not Available Humira 40 mg/0.8 mL subcutane ous syringe kit 06/03 completed Hasn't started yet. 01/12/16 SRC Not Available Not Available Not Available Wal-itin D 10 mg-240 mg tablet,ex tended release TK 1 T PO QD active Not Available Not Available No t Available Enbrel 50 mg/mL (1 mL) subcutane ous syringe Inject 1 mL every 2 weeks by subcutan eous route. 2011 active Not Available Not Available Not Avai lable Flovent HFA 110 mcg/actua tion aerosol inhaler as needed. active Not Available Not Available No t Available diclofena c sodium active Not Available Not Available Not Available Enbrel active Not Available Not Availa ble Not Available Humira Pen 40 mg/0.8 mL subcutane ous kit inject q 2 weeks 10/03 completed Not Available Not Available Not Available Enbrel SureClick 50 mg/mL (1 mL) subcutane ous pen injector active Not Available Not Available Not Available Pulmicort Flexhaler 180 mcg/actua tion breath activated Inhale 1 puff twice a day by inhalati on route. 2012 active Not Available Not Available Not Avai lable Enbrel 25 mg/0.5 mL (0.5 mL) subcutane ous syringe active Not Available Not Available Not Available Mucinex 1,200 mg tablet, extended release Take 1 tablet twice a day by oral route as directed for 14 days. 2018 active Not Available Not Available Not Avai lable Gilphex TR 10 mg-388 mg tablet Take 1 tablet every 6 hours by oral route. 2012 active Not Available Not Available Not Avai lable ipratropi um 0.5 mg-albute rol 2.5 mg/2.5 mL solution for nebulizat ion Use one ampule via nebulize r qid prn 2013 active Not Available Not Available Not Avai lable Vicodin 5 mg-300 mg tablet TK 1 TO 2 TS PO Q 4 TO 6 H 09/13 completed Not Available Not Available Not Available Shingrix (PF) 50 mcg/0.5 mL intramusc ular suspensio n, kit ADM 0.5ML IM UTD active Not Available Not Available No t Available Vitals Date Recorded Body height Body mass index (BMI) Body weight Heart rate Oxygen saturation Oxygen saturation in Arterial blood by Pulse oximetry Body temperature Systolic blood pressure Diastolic blood pressure Provider Name and Address Organization Details Last Updated DateTime 9 167.005 cm 27.9 kg/m2 83254.1 g 77 /min 97 % 97 % 98.4 [degF] 138 mm[Hg] 84 mm[Hg] Priscila Rock Nolan [facility] 9 17:33:01 Date Recorded Body height Body mass index (BMI) Body weight Heart rate Systolic blood pressure Diastolic blood pressure Provider Name and Address Organization Details Last Updated DateTime 0 167.005 cm 28.3 kg/m2 61855.4 3 g 78 /min 158 mm[Hg] 96 mm[Hg] Lisa Camara RN [facility] 0 09:40:57 Date Recorded Body height Provider Name an d Address Organization Details Last Updated DateTime 02/28/2020 167.005 [facility] 02/28/2020 11:41:52 Date Recorded Body height Provider Name an d Address Organization Details Last Updated DateTime 10/16/2020 167.005 cm Natty Montoya BRAINER [facility] 10/16/2020 10:36:39 Date Recorded Body weight Heart rate Systolic blood pressure Diastolic blood pressure Provider Name and Address Organization Details Last Updated DateTime 02/26/2022 78283.12 g 81 /min 150 mm[Hg] 90 mm[Hg] Jessica Ybarra [facility] 02/26/2022 13:38:21 Social History Question Answer Notes LastModified by Organizat ion Details LastModified Time Tobacco Smoking Status Never Smoker LUCERO Tanner, [facility] 11/13/2011 14:56:31 Do You Have An Advance Directive? No Discussed With Procurement Representative 10/2011 Information not available 11/13/2011 What Is Your Level Of Caffeine Consumption? Moderate 1 Cup Coffee/tea Daily Information not available 06/23/2015 How Much Tobacco Do You Chew? None Information not available 11/13/2011 What Type Of Diet Are You Following? REGULAR Information not available 06/23/2015 Which Illicit Or Recreational Drugs Have You Used? None Information not available 11/13/2011 How Many Days In The Past Year Have You Had A Heavy Drinking Consumption (4+ Female, 5+ Male)? 0 Information not available 01/19/2015 Live Alone Or With Others? With Others Rossy (is Her G'daughters Mother) Information not available 06/23/2015 Patient Has Health Care Proxy Signed And In Chart Yes Rossy Posey [email or web address] Information not available 10/06/2018 Marital Status Single Informatio n not available 06/23/2015 Mosquito Repellent Used Routinely No Information not available 06/23/2015 What Was The Date Of Your Most Recent Tobacco Screening? 12/23/2018 Information not available 12/23/2018 How Many Children Do You Have? 0 Information not available 06/23/2015 Seat Belts Used Routinely Yes Information not available 06/23/2015 Are You Sexually Active? Yes Information not available 10/28/2016 Smoke Alarm In Home Yes Information not available 06/23/2015 How Much Tobacco Do You Smoke? No Information not available 12/23/2018 General Stress Level Medium Information not available 06/23/2015 Do You Use Sunscreen Routinely? Yes Information not available 06/23/2015 How Many Years Have You Smoked Tobacco? 0 Information not available 12/23/2018 Sex: Unknown Functional Status Question Answer Note LastModified by Organizat ion Details LastModified Time What is your level of alcohol consumption? Occasional Beer on the weekends [email or web address] Information not available 06/02/2012 Do you or have you ever used smokeless tobacco? Never used smokeless tobacco Information not available 12/23/2018 What is your occupation? retired Information not available 06/23/2015 Do you or have you ever used e-cigarettes or vape? Never used electronic cigarettes Information not available 12/23/2018 Mental Status None recorded. Family History Relationship Description Onset Age of this Age Resolved Age Notes LastModified by Organization Details LastModified Time Mother Osteoarthrit is [email or web address] Not available 2015 10:32:02 Notes:no family hx inflam ar thritis Medical History Condition Response Asthma Y Rheumatoid Arthritis Y Gynecological HistoryNo gynecological history recorded. Obstetrics History GPAL:G 0 P 0 0 0 0 Immunizations Vaccine Type Date Status Note Provider Nam e and Address Organization Details Recorded Time influenza, seasonal, intradermal, preservative free 2 completed Not Available [facility]15[facility]2019 02:35:41 Influenza, split virus, trivalent, PF 3 completed Not Available [facility] 05/15/2019 02:30:29 tetanus toxoid, adsorbed 3 completed Not Available [facility] 05/15/2019 02:38:48 Influenza, split virus, trivalent, preservative 4 completed Not Available [facility] 05/15/2019 02:19:21 Influenza, high-dose, trivalent, PF 6 completed Not Available [facility] 05/15/2019 02:20:17 Pneumococcal conjugate PCV 13 6 completed Not Available [facility] 05/15/2019 02:27:12 Influenza, high-dose, trivalent, PF 6 completed Not Available [facility] 05/15/2019 02:20:43 Influenza, high-dose, trivalent, PF 7 completed Not Available [facility] 05/15/2019 02:22:08 Influenza, high-dose, trivalent, PF 8 completed Not Available [facility] 05/15/2019 02:25:40 Td(adult) unspecified formulation 3 completed STEVE Lopez, [facility] 06/23/2015 09:35:23 pneumococcal polysaccharide PPV23 9 completed Not Available [facility] 05/15/2019 02:23:37 Influenza, high-dose, trivalent, PF 0 completed Fabien Crenshaw MD [address] [place] [address], [address], [facility] 05/18/2019 10:06:02 Influenza, high-dose, quadrivalent, PF 2 completed DANNY Rivas, [facility] 02/26/2022 14:22:22 COVID-19, mRNA, LNP-S, PF, 30 mcg/0.3 mL dose 1 completed DANNY Sandhu, [facility] 08/17/2020 16:30:22 Past Encounters Encounter ID Performer Location Encounter Start Date Encounter Closed Date Diagnosis/Indication Diagnosis SNOMED-CT Code Diagnosis ICD10 Code Diagnosis Note [id number] Chinyere Christiansen MD FP, [facility], OFFICE [address] [facility] [place] [address] 11/13/2011 14:12:40 11/14/2011 06:57:30 [id number] Fabien Crenshaw MD Rheumatol ogy, [address] [place] [address] 12/02/2011 14:16:41 12/09/2011 08:51:14 [id number] Chinyere Christiansen MD , [facility], OFFICE [address] [place] [address] [place] [address] 12/04/2011 13:18:04 12/04/2011 14:27:49 [id number] Javid Thompson MD Radiology , [address] [place] [address] 12/04/2011 13:22:24 12/04/2011 13:55:15 [id number] Fabien Crenshaw MD Rheumatol ogy, [address] [place] [address] 01/03/2012 14:35:44 01/03/2012 15:10:12 [id number] Fabien Crenshaw MD Rheumatol ogy, [address] [place] [address] 05/04/2012 14:45:49 05/05/2012 09:03:12 [id number] Chinyere Christiansen MD , [facility], OFFICE [address] [place] [address] [place] [address] 06/10/2012 14:21:23 06/11/2012 07:32:49 [id number] Javid Thompson MD Radiology , [address] [place] [address] 07/02/2012 14:23:12 07/03/2012 13:48:48 [id number] Fabien Crenshaw MD Rheumatol ogy, [address] [place] [address] 08/10/2012 10:31:39 08/10/2012 11:19:25 [id number] Miguel Silvestre MD Radiology , [address] [place] [address] 08/10/2012 11:09:19 08/11/2012 10:20:16 [id number] Mony James PA-C , [facility], OFFICE [address] [place], [place] [address] ser[place], [place] [address] 10/27/2012 14:27:37 10/28/2012 07:41:06 [id number] Fabien Crenshaw MD Rheumatol jeremie, [facility] [address] [facility] [place], [place] [address] 11/19/2012 09:23:44 11/19/2012 09:53:10 [id number] Precious Lo, PT Physical Therapy, [address] [place] [address] 11/24/2012 11:55:21 11/25/2012 16:19:08 [id number] Precious Lo, PT Physical Therapy, [address], [place] [address] 12/02/2012 09:28:59 12/03/2012 08:26:15 [id number] Precious Lo, PT Physical Therapy, [address] [place], [place] [address] 12/09/2012 09:54:33 12/10/2012 16:07:21 Low back pain [id number] ANGLE Dexter, [facility], OFFICE [address] [facility] [place], [place] [address] 12/22/2012 09:12:37 12/23/2012 07:44:30 Chronic sinusitis 52555783 Stable/imp roved with daily antihistam jessa. Continue these. She declines proposed ENT referral. Follow up 3-6 months or sooner as needed. Rheumatoid arthritis 55512369 Active ongoing problem. Pt with impairment that limits her abilities to do some of her basic ADLs. Referred to [facility] for evaluation . To return here as needed to complete paperwork. Continue follow up with rheumatolo nba [id number] Precious Lo, PT Physical Therapy, [address] [place], [place] [address] 12/23/2012 10:57:31 12/24/2012 09:00:31 Low back pain [id number] Precious Lo, PT Physical Therapy, [address] [place] [address] 12/31/2012 11:53:11 01/01/2013 08:07:17 Low back pain [id number] MD LALITHA Pastrana, [facility], OFFICE [address] [place] [address] 01/14/2013 08:58:54 01/15/2013 08:19:40 Adult health examination [id number] see Risk Assessment and Lifestyle Change Counseling section above. Pt absolutely refuses a pap and a colonosocp y. Counseling [id number] Benign ess ential hypertension 8260638 Blood pressure at goal. Cont Ramone-I and CCB. Asthma 302401403 PERSIST ENT (Mild/Mod/ Severe) Based on history, physical assessment and peak flow the patient's asthma in Not in control. See orders for adjustment in plan. The asthma action plan has been discussed. The patient verbalizes understand ing of medication use. The patient is in agreement with this plan Influenza vaccine needed [id number] 106 Acute exac erbation of chronic asthmatic bronchitis 565940415 As above. I urged daily inhaled steroids and 5 days of prednisone . Administra tion of tetanus vaccine [id number] Fabien Crenshaw MD Rheumatol [address] [address] 02/15/2013 09:25:01 02/16/2013 09:15:11 Rheumatoid arthritis 89858907 Carries a dx of RA. High titer RF and CCP. Despite more than 10 years of sx's, very little if any sign of deformity. Xrays normal. 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 She is now back on Enbrel 50 mg every other week. She is not requiring other medication s for arthritis. I had given her some prednisone to take for flareups, but she only used it once. There is no sign of active synovitis today. She has been on low-dose Plaquenil for years, probably close to 15 at this point.she has recently seen optometry. My overall assessment is that her arthritis is relatively mild, quite well-contr olled on current regimen of low dose Enbrel and Plaquenil. [id number] Fabien Crenshaw MD Rheumatol [address] [address] 08/13/2013 09:28:39 08/17/2013 07:28:12 Rheumatoid arthritis 68551284 Carries a dx of RA. High titer RF and CCP. Despite more than 10 years of sx's, very little if any sign of deformity. Xrays normal. 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 She is now back on Enbrel 50 mg every other week. She is not requiring other medication s for arthritis. She has been on low-dose Plaquenil for years, probably close to 15 at this point.she has recently seen optometry. Reminded again in writing to see Ophth My overall assessment is that her arthritis is relatively mild, quite well-contr olled on current regimen of low dose Enbrel and Plaquenil. [id number] Chinyere Christiansen MD , [facility], OFFICE [address] [place] [address] 09/13/2013 10:32:14 09/14/2013 08:32:22 Benign essential hypertension 4462184 Blood pressure at goal. Cont Ramone-I and CCB. Asthma 020200611 Well controlled . No active issues. [id number] Fabien Crenshaw MD Rheumatol og, [address] [address] 02/14/2014 09:48:22 02/15/2014 15:31:16 Rheumatoid arthritis 76670224 Carries a dx of RA. High titer RF and CCP. Despite more than 10 years of sx's, very little if any sign of deformity. Xrays normal. 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 Enbrel 50 mg every other week. She is not requiring other medication s for arthritis. She has been on low-dose Plaquenil for years, probably close to 15 at this point.she has recently seen optometry. Up to date on eye exams. My overall assessment is that her arthritis is relatively mild, quite well-contr olled on current regimen of low dose Enbrel and Plaquenil. Influenza vaccine needed [id number] Fabien Crenshaw MD Rheumatol og, [address] [address] 09/13/2014 14:53:58 09/14/2014 09:34:44 Rheumatoid arthritis 71530244 Carries a dx of RA. High titer RF and CCP. Despite more than 10 years of sx's, very little if any sign of deformity. Xrays normal. 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 Enbrel 50 mg every 3 weeks or so. She is not requiring other medication s for arthritis. She has been on low-dose Plaquenil for years, probably close to 15 at this point.she has recently seen optometry. Up to date on eye exams. I suggested she try to reduce Plaquenil to 100mg daily. Update labs on Enbrel. Return 6 mo or sooner if needed. My overall assessment is that her arthritis is relatively mild, quite well-contr olled on current regimen of low dose Enbrel and Plaquenil. [id number] Bryan Melton, [facility], [address] [place] [address] 11/15/2014 14:44:58 12/08/2014 03:45:11 Nuclear sclerotic cataract 326275449 Long-term drug therapy 709858178 Hypermetropia 71512601 Regular astigmatism 52834556 Presbyopia 58093899 [id number] Chinyere Christiansen MD FP, [facility], OFFICE [address] [place] [address] 01/19/2015 10:34:27 01/20/2015 09:10:02 Benign essential hypertension 3620732 Blood pressure is not at goal today, with a recheck of 150/90. She continues to take the regime that was prescribed to her in [place], which includes diltiazem 120, enalapril 20, and doxazosin 4 mg. She states that she previously tolerated amlodipine very poorly with lower extremity edema. Given her current medication list and pending labs, change in medication was deferred until next appointmen t, and patient was advised to increase physical activity as this is currently lacking from her lifestyle. If still elevated, consider DC diltiazem, start thiazide diuretic. Asthma 381114291 Recentl y poorly controlled as patient went one week without Flovent. Symptoms seem to be well-contr olled by MALCOM, and ICS with good adherence. Continue current plan, consider discontinu ing Singulair, as patient states she is only using this when necessary. Also consider the role of spirometry at next visit for staging. Patient voiced comprehens ion and agreed with plan of care Counseling [id number] Rheumatoid arthritis 34802278 Mounika Will continue to see Dr. Crenshaw at regular intervals, who has been ordering routine labs for monitoring both for Plaquenil and Enbrel side effects. Seems to be tolerating decreased dose of Plaquenil. Chronic sinusitis 37502642 suspect allergic etiology, patient has had excellent success with intranasal budesonide , and is requesting refill today. 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 Patient declined PT referral at this time, though this was stressed as the best treatment. She agreed with this plan of care and had no further questions or concerns Paronychia of finger [id number] advised warm soaks, and topical antibiotic cream, RTC or call if unresolved . [id number] Chinyere Christiansen MD , [facility], OFFICE [address] [place] [address] 06/23/2015 09:30:48 06/23/2015 13:15:07 Adult health examination 309318657 Z00.00 see Risk Assessment and Lifestyle Change Counseling section above Counseling 246085355 Z71 .9 Benign ess ential hypertension 5405372 I10 Blood pressure at goal Blood pressure NOT at goal. Active or passive immunization 961324458 Z23 Screening mammography 24 186708 Z12.31 Declined by patient today after counseling on the risks vs benefits Asthma 965360341 J45.30 PERSISTENT (Mild/Mod/ Severe) Based on history, physical assessment and peak flow the patient's asthma in Not in control. patient has been confusing medication s, and not taking the inhaled corticoste roid as prescribed . We reinforced the correct directions for this See orders for adjustment in plan. The asthma action plan has been discussed. The patient verbalizes understand ing of medication use. The patient is in agreement with this plan Hyperlipidemia 37121924 E78.5 Nasal congestion 7140635 0 R09.81 likely secondary to overuse of Afrin OTC, advised to stop taking Afrin, start Flonase, and advised that her congestion is likely to worsen within the next week. Also advised to continue with nasal saline rinses. Follow up with ENT if unresolved [id number] Fabien Crenshaw MD Rheumatol jeremie, [address] [address] 11/27/2015 14:33:44 11/27/2015 15:10:54 Rheumatoid arthritis 42102734 M06.9 Long hx of controlled RA. On Plaquenil and Enbrel. Insurance requires that she switch from Enbrel to Humira. We have gone through the PA process. However, patient still has about 4 mo worth of Enbrel. She should use this up, then start Humira. Discussed same basic side effect profile.Co ntinue Plaquenil 100/d. I want to see her in follow up 6 mo, sooner if needed. [id number] Hanh Causey MD , [facility], OFFICE [address] [place] [address] 01/08/2016 12:51:28 01/08/2016 13:15:00 Hyperglycemia 18565344 R73.9 Will check A1C to r/o DM. Blood glucose 110 in 06/13. Candidiasis of skin 4988 3006 B37.2 Consistent with intertrigi nous candidiasi s.Start ketoconazo le cream x 2 weeks.Keep area clean and dry, wearing bra may help.F/U for worsening or no improvemen t in 2 weeks. 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 s/t itching, Unclear whether this from ketoconazo le, advised to stop ketoconazo le, though I do suspect an acute allergic reaction, continue with Vistaril, triamcinol one, and one time by mouth dose of fluconazol e Candidal intertrigo 9556 61433 B37.2 Candidal intertrigo of the right breast, appears to be somewhat resolving, but unfortunat ana has new developmen t of itching, consider the possibilit y of allergic reaction, advised to stop ketoconazo le Benign ess ential hypertension 9120864 I10 Not at goal, recommende d BP checks at pharmacy/s tore and to write down numbers, f/u regularly Active or passive immunization 813186149 Z23 [id number] Fabien Crenshaw MD Rheumatol jeremie, [address] [place] [address] 06/03/2016 10:20:21 06/04/2016 07:30:29 Rheumatoid arthritis 39653575 M06.9 Long hx of controlled RA. Was on Plaquenil and Enbrel. Insurance requires that she switch from Enbrel to Humira. Finally started Humira about 5-6 weeks ago and doing fine. I will have her continue on full dose Humira for now.She has been on very low dose Plaquenil for many years. Suggested she try stopping it. I want to see her in follow up 6 mo, sooner if needed. If she continues to do well on Humira, I will ask her to reduce freqency to every 3 weeks. [id number] Fabien Crenshaw MD Rheumatol jeremie, [address] [place] [address] 07/30/2016 09:10:56 07/30/2016 09:43:30 Rheumatoid arthritis 71607944 M06.9 Long hx of controlled RA. Was on Plaquenil and Enbrel. Insurance required that she switch from Enbrel to Humira. Started Humira about 3 mo ago. Progressiv e increase in symptoms. Humira does not seem as effective as the Enbrel.MTX contraindi cated with lung disease. Back on Plaquenil as DMARD. In fact, patient did very well on the Enbrel, often just taking it every 3 weeks. Now on full dose Humira (approxima tely 3 x the cost) not doing well. Will prescribe Enbrel again, ask for PA if needed. Asthma 604553189 J45.90 9 Asthma exacerbati on, recent URI. At present no sign significan t infection, but on TNF, low threshold for adding antibiotic . [id number] Javid Sriram, OD [facility], [facility] [address] [facility] [place] [address] 10/03/2016 10:20:47 10/03/2016 11:16:35 Hypermetropia 12607265 H52.03 Presbyopia 76192404 H52. 4 Regular astigmatism 6890 5002 H52.223 Nuclear sc lerotic cataract 660428190 H25.13 cataracts- not visually significan t Long-term drug therapy 805774661 Z79.899 Return for 10-2 VF and OCT at [facility] [id number] DARRYL Varela, [facility], OFFICE [address] [facility] [place] [address] 10/03/2016 12:35:21 10/03/2016 17:15:39 Tinea corporis 52881347 B35.4 Larger, annular areas on left thigh, arms bilaterall y likely tinea corporis.A pply antifungal cream once a day for at least 2 weeks.Foll ow up at physical in 10/2016 or sooner as needed. Generalize d skin eruption caused by drug and medicament 881647223 L27.0 ? reaction to Lalo, which pt started to take 4 months ago for weight loss and is the only new medication or possible trigger. She has had intermitte nt rashes since then.Skin rash/urtic aria is a known side effect. She has been taking all of her other medication s for years without a similar reaction.D iscontinue Lalo.Pt was taking Lalo more for appearance s than true weight loss. She was encouraged to take daily walks and to follow a healthy diet if she is interested in weight loss.Pt advised that rashes can take several weeks, if not months, to calm down.As needed hydroxyzin e and Benadryl gel for pruritis.C onsider daily Zyrtec or similar after acute phase. Rheumatoid arthritis 698 06979 M06.9 Pt discontinu ed Enbrel herself to see if it could be causing the rash.Seems unlikely as she has taken it for over a decade without similar reaction.S he would like to resume because it works well to control her RA; she was encouraged to resume and reminded that it could take a few weeks before the medication starts to work. [id number] DARRYL Varela, [facility], OFFICE [address] [place] [address] 10/17/2016 13:32:36 10/17/2016 14:20:01 Psoriasis 9472674 L40.9 Pt is taking Enbrel for rheumatoid arthritis. Add betamethas one cream to be applied once or twice a dayUse heavy cream without fragrance or dye daily, apply after bathingMay use Benadryl 25-50 mg every 4-8 hours for itchConsid er dermatolog y referral if intractabl e [id number] Fabien Crenshaw MD Rheumatol rossy, [facility] [address] [place] [address] 10/22/2016 11:12:50 10/22/2016 15:37:54 Eruption 280193968 R21 Widespread rash, especially trunk. Sxs more than a month.Impr oving with topical steroids and benadryl. I cannot account for the rash. One can consider possibilit y that this is Enbrel related, but she had been on the Enbrel for about 13 years, then paused while she took Humira (ineffecti ve).This does not look like the psoriatic type rash one sees in assoc with TNF treatment, although I am seeing the rash as it is resolving. I have suggested it is OK to go back on the Enbrel. Follow rash and if starts getting worse again, should be seen by Dermatolog y. Rheumatoid arthritis 698 29137 M06.9 Long hx of controlled RA. Was on Plaquenil and Enbrel.Ins urance required that she switch from Enbrel to Humira. Humira less effective and now back on Enbrel. Contiue Enbrel every 2 weeks. [id number] MD LALITHA Pastrana, [facility], OFFICE [address] [place] [address] 10/28/2016 09:37:02 10/28/2016 12:02:04 Asthma 279881099 J45.30 PERSISTENT (mild) Based on history, physical assessment and peak flow the patient's asthma in Not in control. See orders for adjustment in plan. The asthma action plan has been discussed. The patient verbalizes understand ing of medication use. The patient is in agreement with this plan Counseling 479192534 Z71 .9 Adult [facility] th examination 779604614 Z00.00 see Risk Assessment and Lifestyle Change Counseling section above Benign ess ential hypertension 1307642 I10 Blood pressure NOT at goal. Rheumatoid arthritis 698 21031 M06.9 Doing well since switching back to Enbrel, though she did develop a rash that rheumatolo nba noted. COnsider derm referral if this does not resolve. Intentiona l weight loss 138392212 R63.8 12 lb weight loss! Has been Gastroesop hageal reflux disease 002411956 K21.9 COntrolled with PRN use of ranitidine Impacted cerumen 5623801 6 H61.21 [id number] Fabien Cernshaw MD Rheumatol ogy, [facility] [address] [facility] [address] 04/07/2017 14:09:16 04/08/2017 07:24:22 Active or passive immunization 228189125 Z23 Blood gluc ose outside reference range 630730168 R73.09 Rheumatoid arthritis 698 77544 M06.9 Long hx of controlled RA. Was on Plaquenil and Enbrel.Ins urance required that she switch from Enbrel to Humira. Humira less effective and now back on Enbrel. Contiue Enbrel every 2 weeks. Doing well with no active synovitis seen. Long-term drug therapy 153290001 Z79.899 On chcf Enbrel. Will need labs every 4-6 months. Discussed. On Plaquenil. Discussed issues of ocular toxicity, need for regular ophthalmol ogy followup. She has been seen, but declines suggested OCT exam. Bursitis of shoulder 239 148174 M75.51 Findings of R RC tendinitis /bursitis. Sxs and findings only moderate.S uggested try local injection, but she wants to defer. [id number] Chinyere Christiansen MD FP, [facility], OFFICE [address] [facility] [place] [address] 05/15/2017 10:26:10 05/15/2017 11:48:37 Benign essential hypertension 2382004 I10 Blood pressure NOT at goal. Intrinsic asthma 6938798 08 J45.20 INTERMITTE NT Asthma- Based on history, physical assessment and peak flow the patients asthma is in control. Will continue the present medication s and follow-up in 6 months. The asthma action plan has been discussed. The patient verbalizes understand ing medication use.. The patient is in agreement with this plan. Counseling [id number] Z71 .9 Rheumatoid arthritis 698 29679 M06.9 Doing well since switching back to Enbrel Rhinitis medicamentosa 84685251 J31.0 We reviewed the pathogenes is of this phenomenon and the various treatment techniques , including for severe cases, the use of an oral steroid taper, intranasal steroids, and considerat ion of diluting the nasal spray with normal saline for 1 week of treatment while coming off of it. Unfortunacait perez, given her current treatment with biologic agent in role for her rheumatoid arthritis, I would defer treatment with prednisone to Rheumatolo gist versus ENT Hyperlipidemia 13820081 E78.5 Asthma 484369600 J45.30 PERSISTENT (mild) Based on history, physical assessment and peak flow the patient's asthma in Not in control. See orders for adjustment in plan. The asthma action plan has been discussed. The patient verbalizes understand ing of medication use. The patient is in agreement with this plan [id number] Fabien Crenshaw MD Rheumatol [place], [address] [address] 06/02/2017 13:13:27 06/02/2017 14:56:28 Rheumatoid arthritis 48460142 M06.9 Long hx of controlled RA. Was on Plaquenil and Enbrel.Ins urance required that she switch from Enbrel to Humira. Doing well with no active synovitis seen. Humira less effective and now back on Enbrel. Contiue Enbrel every 2 weeks.Also remains on Plaquenil. Difficult to know how much this is helping, but told to continue.S ees Ophth regularly. Long-term drug therapy 167330735 Z79.899 On chcf Enbrel. Will need labs every 4-6 months. Discussed. On Plaquenil. Discussed issues of ocular toxicity, need for regular ophthalmol ogy followup. She has been seen, but declined suggested OCT exam. Bursitis of shoulder 239 193293 M75.51 Findings of R RC tendinitis /bursitis. Sxs and findings persistent .Suggested try local injection. This time she consents. [id number] Fabien Crenshaw MD Rheumatol [place], [place] [address] [facility] [place] [address] 12/01/2017 13:40:32 12/01/2017 15:56:14 Tuberculosis screening 136637648 Z11.1 Bursitis of shoulder 239 883106 M75.51 Findings of R RC tendinitis /bursitis. Sxs and findings persistent .Suggested repeat local injection. Rheumatoid arthritis 698 76881 M06.9 Long hx of controlled RA. Was on Plaquenil and Enbrel.Ins urance required that she switch from Enbrel to Humira. Humira less effective and now back on Enbrel. Contiue Enbrel every 2 weeks. Has also been on Plaquenil. Difficult to know how much this is helping. OK to try stopping Plaquenil. Doing well with no active synovitis seen. [id number] Chinyere Christiansen MD , [facility], OFFICE [address] [place] [address] 01/13/2018 13:03:17 01/13/2018 14:45:08 Adult health examination 853113458 Z00.00 see Risk Assessment and Lifestyle Change Counseling section above Counseling 332626389 Z71 .9 Depression screening 171 187680 Z13.89 depression screening tool administer ed, entered into emr, scored and discussed, time greater than 7.5 minutes Benign ess ential hypertension 3993454 I10 Blood pressure NOT at goal. Active or passive immunization 334025929 Z23 Rheumatoid arthritis 698 78762 M06.9 Doing well on combinatio n of plaquenil and Enbrel. Asthma 411384064 J45.30 PERSISTENT (mild) Based on history, physical assessment and peak flow the patient's asthma in Not in control. See orders for adjustment in plan. The asthma action plan has been discussed. The patient verbalizes understand ing of medication use. The patient is in agreement with this plan. Doing well with intermitte nt use of montelukas t. ICS is also intermitte ntly used. Sparing use of MALCOM [id number] Javid Bhatia OD [facility], [facility] [address] [facility] [place] [address] 03/11/2018 12:53:21 03/11/2018 13:46:25 Hypermetropia 75861992 H52.03 Allergic conjunctivitis 757585399 H10.13 Nuclear se nile cataract 262525051 H25.13 Cataract consistent with decreased BCVA. Not affecting ADL at this time. Presbyopia 57744634 H52. 4 [id number] Fabien Crenshaw MD Rheumatol jeremie, [address] [address] 07/21/2018 08:18:25 07/21/2018 10:55:11 Rheumatoid arthritis 52177239 M06.9 Long hx of controlled RA. Was on Plaquenil and Enbrel.Ins urance required that she switch from Enbrel to Humira. Humira less effective and now back on Enbrel every 2 weeks. Stopped Plaquenil several mo ago. Today some increase in joint sxs. Instructed to increase frequency of Enbrel to every 10 days. Return 6 mo or sooner if needed. Low back pain 761614453 M54.5 Hx MRI dicumented spinal stenosis. Worsening sx's.Updat e x rays. No neuro deficit. I referred her to PT. Needs to go through PT before any referral for injection etc. [id number] Delano Kulkarni Jr. MD , [facility], OFFICE [address] [place] [address] 07/30/2018 11:26:21 07/30/2018 13:05:52 Active or passive immunization 091266100 Z23 Asthma 835129303 J45.30 PERSISTENT (mild) Based on history, physical assessment and peak flow the patient's asthma in Not in control. See orders for adjustment in plan. The asthma action plan has been discussed. The patient verbalizes understand ing of medication use. The patient is in agreement with this plan. Doing well with intermitte nt use of montelukas t. ICS is also intermitte ntly used. Sparing use of MALCOM Rheumatoid arthritis 698 93376 M06.9 Doing well with Enbrel not on plaquenil Benign ess ential hypertension 5119034 I10 Her home measuremen ts have been controlled and WNL. Eruption 275604518 R21 This appears most consistent with an atopic dermatitis , though she does endorse some symptoms fo urticaria. Will treat with cetirizine and TAC, and advise [id number] Magalys Stacy MD , [facility], OFFICE [address] [place] [address] 12/23/2018 17:24:49 12/24/2018 07:36:30 Chronic sinusitis 73007873 J32.9 I believe this may be secondary to Rebound nasal congestion from using too much Afrin. discussed with Mounika about weaning and using fluticason e, also ENT referral to r/o other causes of her chronic nasal congestion . I don't believe this is a bacterial infection at this time.Will try also Mucinex given her slight chest congestion .follow up if any concerns or changes. [id number] Fabien Crenshaw MD Rheumatol jeremie, [facility] [address] [facility] [place] [address] 05/18/2019 09:29:09 05/20/2019 06:14:41 Active or passive immunization 277119268 Z23 Rheumatoid arthritis 698 18544 M06.9 Long hx of controlled RA. Was on Plaquenil and Enbrel.Ins urance required that she switch from Enbrel to Humira. Humira less effective and now back on Enbrel every 2 weeks. She probably was doing better when taking Enbrel every 10 days.Retur n to q 10 day dosing. Stopped Plaquenil several mo ago. Check labs. Return 6 mo or sooner if needed. 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 small noduleInje ct today. [id number] Stephen Santoyo MD Rheumatol [facility], [facility] [address] [place] [address] 02/28/2020 08:16:47 02/28/2020 13:31:36 Rheumatoid arthritis 29140497 M06.9 Long hx of controlled RA.Continu e Enbrel for now. I counselled the patient ot take it every 10 days instead of 2 weeks. Check labs.Patie nt ot get the flu shot. Return 6 mo or sooner if needed. [id number] Stephen Santoyo MD Rheumatol afshan, [facility] [address] [place] [address] 10/16/2020 09:02:44 10/16/2020 19:37:35 Rheumatoid arthritis 79494939 M06.9 Long hx of controlled RA.Patient is having rash and her PCP thinks that it could be Enbrel.I asked patient to hold Enbrel next dose and let me know if rashes improves. Check labs. Patient stated that she just had labs, not available to me. Will check on this.Ramona nt got the COVID vaccine. Eruption 672258946 R21 As above. [id number] Stephen Santoyo MD Rheumatol [facility], [facility] [address] [facility] [place] [address] 02/26/2022 13:23:54 02/27/2022 13:54:53 Rheumatoid arthritis 84191399 M06.9 Long hx of RA.Reports pain in her joints.Has been taking Enbrel every other week instead of weekly.I asked patient to take enbrel weekly. Patient to get COVID booster.Fl u shot today.Cristina allen got Shingrix and pneumonia vaccine.Ch hakan labs. I informed the patient that I will be leaving the practice and she has to contact her pcp to get a referral for rheumatolo gy. She verbalizes understand ing and has already received my letter. Active or passive immunization 508836118 Z23 Osteopenia 959145451 M85 .80 Bone density showed osteopenia with low FRAX scores.Dayo cium and Vit D.Repeat bone density in a year. Long-term drug therapy 475877850 Z79.899 On Enbrel.Pat ient to hold Enbrel if fever or infection. Patient to have full skin exam at her pcp or dermatolog y if pcp does not do it. Health Concerns Section Related Observation LastModified by Organization Detai ls LastModified Time None Recorded Concern Status LastModified by Organization Details LastModified Time None Recorded Advance Directives Directive N: Discussed with customer operations intern 10/2011 Payers Encounter Date Sequence Insurance Name Policy Number Policy Piña Covered Member ID Piña Member ID Guarantor Name 12/23/2018 1 [place] [employer] Mounika cristina [id number] Mounika Mendenhall 12/23/2018 2 [place] [facility] Mounika Mendenhall [id number] Mounika Mendenhall 05/18/2019 1 [place] [employer] Mounika cristina [id number] Mounika Mendenhall 05/18/2019 2 [place] [facility] ([facility]) Mounika Mendenhall [id number] Mounika Mendenhall 02/28/2020 1 [place] [facility] Mounika Mendenhall-M jonnie [id number] Mounika Mendenhall 02/28/2020 2 [place] [facility] Mounika Mendenhall [id number] Mounika Mendenhall 10/16/2020 1 [place] [facility] Mounika Mendenhall-M jonnie [id number] Mounika Mendenhall 10/16/2020 2 [place] [facility] ([facility]) Mounika Mendenhall [id number] Mounika Mendenhall 02/26/2022 1 [place] [facility] Mounika Mendenhall-Antonia jonnie [id number] Mounika Mendenhall 02/26/2022 2 [place] [facility] Mounika Mendenhall [id number] Mounika Mendenhall Notes Date Note Type Note Provider Name and Address Organization Details Recorded Time 12/23/2018 text/html Sinus Pressure x 4 months, associated with increased nasal congestion and unable to breath through the nose. using a saline rinse, that works on occasion however, she is feeling worse now, she cannot breath through her nose. She is also at times feeling slight chest congestion now with morning cough, dry. no f/c. No ear pain . She feels the pressure on the maxillary sinuses.Has been using Afrin , tries to use only at night but has been using for quite some time now. Has not seen ENT MD for evaluation. Last time she was like this it lasted for 5 yrs. Ana Gamble PA-C [address] [place] [address], [phone], [facility] [place] 12/24/2018 06:47:57 05/18/2019 text/html This is a 68 y/o patient with Sero+, CCP+ RA since about 2001. I have followed her since 2011 when she moved here from [place]. . She describes that at the time of diagnosis there was swelling and pain in the hands. Swelling would be intermittent. She was placed on Plaquenil and was on this medication steadily until 2018. Initially there was discussion about putting her on methotrexate, but she has a history of asthma and was worried about lung problems. Roughly 2004 she was placed on Enbrel. This worked very well in controlling her symptoms. Then in 2015, insurance forced her to change to Humira. This did not work well. Since 2017, back on Enbrel, generally taking it every 10 days, but lately, every 14 days. Today reports hand pain with some trigger phenomenon. She has difficulty localizing sxs, but L 4th finger seems the worse. No joint swelling. Some AM stiffness, but has trouble quantifying. No history of any particular problems on Enbrel with no serious infections that she knows of. Today describes exacerbation of low back pain. Hurts with prolonged standing and with walking. No radicular sxs. Trying to exercise at gym. Hx of elevated BS in past, but no diabetes diagnosis. ` Fabien Crenshaw MD [address] [place] [address], [phone], [facility] [place] 05/19/2019 17:55:31 02/28/2020 text/html This is a virtua l phone visit. Patient is 69 y old female following-up on rheumatoid arthritis.Patient used to see Dr. crenshaw.Patient states that she feels good, she feels some pain pain in the left hand, swelling on and off.Patient is on Enbrel , she takes it sometimes every 2 weeks and sometimes she takes it every 10 days. She is tolerating the medication, no side effects reported. As per previous office visit with Dr. Crenshaw: This is a 68 y/o patient with Sero+, CCP+ RA since about 2001. I have followed her since 2011 when she moved here from [place]. . She describes that at the time of diagnosis there was swelling and pain in the hands. Swelling would be intermittent. She was placed on Plaquenil and was on this medication steadily until 2018. Initially there was discussion about putting her on methotrexate, but she has a history of asthma and was worried about lung problems. Roughly 2004 she was placed on Enbrel. This worked very well in controlling her symptoms. Then in 2016, insurance forced her to change to Humira. This did not work well. Since 2017, back on Enbrel, generally taking it every 10 days, but lately, every 14 days. Today reports hand pain with some trigger phenomenon. She has difficulty localizing sxs, but L 4th finger seems the worse. No joint swelling. Some AM stiffness, but has trouble quantifying. No history of any particular problems on Enbrel with no serious infections that she knows of. Today describes exacerbation of low back pain. Hurts with prolonged standing and with walking. No radicular sxs. Trying to exercise at gym. Hx of elevated BS in past, but no diabetes diagnosis. ` Fer Santoyo MD [address] [place] [address], [place], [phone], [facility] 02/28/2020 12:09:24 10/16/2020 text/html This is a [employer] phone visit. Patient is 69 y old female following-up on rheumatoid arthritis.Patient does not speak [place] and her daughter is translating. She states that she has a rash all over body, on legs and hands, rash has been present for years but has been getting worse lately but for now the rash is improving. No changes with pain or other symptoms. since last visit. As per previous office visit:Patient states that she feels good, she feels some pain pain in the left hand, swelling on and off.Patient is on Enbrel , she takes it sometimes every 2 weeks and sometimes she takes it every 10 days. She is tolerating the medication, no side effects reported. As per previous office visit with Dr. Crenshaw: This is a 68 y/o patient with Sero+, CCP+ RA since about 2001. I have followed her since 2011 when she moved here from [place]. . She describes that at the time of diagnosis there was swelling and pain in the hands. Swelling would be intermittent. She was placed on Plaquenil and was on this medication steadily until 2018. Initially there was discussion about putting her on methotrexate, but she has a history of asthma and was worried about lung problems. Roughly 2004 she was placed on Enbrel. This worked very well in controlling her symptoms. Then in 2015, insurance forced her to change to Humira. This did not work well. Since 2017, back on Enbrel, generally taking it every 10 days, but lately, every 14 days. Today reports hand pain with some trigger phenomenon. She has difficulty localizing sxs, but L 4th finger seems the worse. No joint swelling. Some AM stiffness, but has trouble quantifying. No history of any particular problems on Enbrel with no serious infections that she knows of. Today describes exacerbation of low back pain. Hurts with prolonged standing and with walking. No radicular sxs. Trying to exercise at gym. Hx of elevated BS in past, but no diabetes diagnosis. ` Fer Santoyo MD [address] [place] [address], [phone], [facility] 10/16/2020 11:00:26 02/26/2022 text/html Patient is 71 y old female following-up on rheumatoid arthritis. Patient does not speak [place] and her daughter is translating. She has pain in hands, wrists, fingers, shoulders. She is taking enbrel every other week instead of every week as she thinks the medication is strong.She is tolerating the medication, no side effects reported.No recent labs. Previous visit on 10/16/20:Patient is 69 y old female following-up on rheumatoid arthritis.Patient does not speak [place] and her daughter is translating. She states that she has a rash all over body, on legs and hands, rash has been present for years but has been getting worse lately but for now the rash is improving. No changes with pain or other symptoms. since last visit. As per previous office visit:Patient states that she feels good, she feels some pain pain in the left hand, swelling on and off.Patient is on Enbrel , she takes it sometimes every 2 weeks and sometimes she takes it every 10 days. She is tolerating the medication, no side effects reported. As per previous office visit with Dr. Crenshaw: This is a 68 y/o patient with Sero+, CCP+ RA since about 2001. I have followed her since 2011 when she moved here from [place]. . She describes that at the time of diagnosis there was swelling and pain in the hands. Swelling would be intermittent. She was placed on Plaquenil and was on this medication steadily until 2018. Initially there was discussion about putting her on methotrexate, but she has a history of asthma and was worried about lung problems. Roughly 2004 she was placed on Enbrel. This worked very well in controlling her symptoms. Then in 2015, insurance forced her to change to Humira. This did not work well. Since 2017, back on Enbrel, generally taking it every 10 days, but lately, every 14 days. Today reports hand pain with some trigger phenomenon. She has difficulty localizing sxs, but L 4th finger seems the worse. No joint swelling. Some AM stiffness, but has trouble quantifying. No history of any particular problems on Enbrel with no serious infections that she knows of. Today describes exacerbation of low back pain. Hurts with prolonged standing and with walking. No radicular sxs. Trying to exercise at gym. Hx of elevated BS in past, but no diabetes diagnosis. Jimmy Ybarra LPN [facility] 02/26/2022 14:22:40 OBGyn Episode No OBEpisode recorded.
[2024-09-17 10:09] VITALS: BP 154/100; PULSE 87; O2SAT 97; BMI 27.2
== END 2024-09-17 10:51 | disposition home or self-care (01) ==
LOC: HO.RHE 09:52
PROVIDERS: PCP Family Medicine; Visit Provider Student in an Organized Health Care Education/Training Program
DX: M06.09 Rheumatoid arthritis without rheumatoid factor, multiple sites (principal); M15.9 Polyosteoarthritis, unspecified; Z51.81 Encounter for therapeutic drug level monitoring; Z79.620 Long term (current) use of immunosuppressive biologic; M75.51 Bursitis of right shoulder; M75.52 Bursitis of left shoulder
CPT/HCPCS: 20610; 99214

== ENCOUNTER → 2024-09-17 09:52 | Outpatient (BNVA) | payer MEDICARE, MEDICAID, SELFPAY | PROVIDERS: PCP Family Medicine; Visit Provider Student in an Organized Health Care Education/Training Program | DX: M75.51 Bursitis of right shoulder (principal); M75.52 Bursitis of left shoulder; M05.9 Rheumatoid arthritis with rheumatoid factor, unspecified; M15.9 Polyosteoarthritis, unspecified; Z51.81 Encounter for therapeutic drug level monitoring; Z79.620 Long term (current) use of immunosuppressive biologic; Z79.899 Other long term (current) drug therapy | CPT/HCPCS: 20610; 99212; J3300 ==